=== PATIENT | female | born 1980 | race Caucasian/White ===

== ENCOUNTER → 2018-02-26 14:27 | Outpatient (CLI) | payer OTHER, SELFPAY ==
[2018-02-26 16:03] LABS: Hematocrit 42.6 % (37-47); Hemoglobin 14.7 g/dl (12.0-15.0); Mean Corp Hgb Conc 34.5 g/gl (32-36); Mean Platelet Vol. 10.1 fl (6.2-12.0); Platelet Count 226 K/mm3 (150-450); RBC Distribution Width CV 13.8 % (11.6-14.6); RBC Distribution Width SD 41.6 fl (35.1-43.9); Red Blood Count 5.07 M/mm3 (4.2-5.4); White Blood Count 9.9 K/mm3 (4.4-11.0)
[2018-02-26 16:10] LABS: Scan Indicated on CBC? Y/N NO
[2018-02-26 16:14] LABS: hCG Titer Quant., Serum < 1 mIU/mL (<9 non-preg)
[2018-02-26 16:20] LABS: Estradiol 25.7 pg/mL; Free T3 2.7 pg/mL (2.18-3.98); T4 Free Direct 0.97 ng/dL (0.76-1.46); Thyroid Stim Hormone (TSH) 1.51 uIU/mL (0.358-3.74)
[2018-02-26 17:33] LABS: Hemoglobin A1c 5.5 % (4.2-6.3)
== END ==
LOC: WOBLAB 14:28
PROVIDERS: Visit Provider Obstetrics & Gynecology
DX: N92.5 Other specified irregular menstruation (principal)
CPT/HCPCS: 36415; 82670; 83036; 84144; 84403; 84439; 84443; 84481; 84702; 85027

== ENCOUNTER → 2018-02-27 14:34 | Outpatient (CLI) | payer OTHER, SELFPAY ==
--- NOTE | 2018-02-27 14:36 | US_ITS ---
STUDY: ULTRASOUND TRANSVAGINAL CLINICAL: Female, 37 years old. Irregular vaginal bleeding x3 weeks TECHNIQUE: Transvaginal COMPARISON: None. FINDINGS: Normal uterine size measuring 10.4 x 4.7 x 4.2 cm. there are no myometrial masses. Uterus is diffusely heterogeneous in echogenicity. Normal endometrial thickness measuring 7 mm. The endometrium is hyperechoic. There are no endometrial masses, and there is no fluid in the endometrial cavity. Normal uterine cervix. The right ovary measures 4.6 x 4.0 x 3.5 cm. There is a right ovarian cyst containing debris measuring 3.6 x 3.2 x 2.8 cm. The left ovary measures 3.8 x 2.5 x 2.8 cm. There is a left ovarian cyst measuring 2.2 x 1.6 x 1.7 cm.. There is no free fluid in the pelvis. Polycystic ovary disease: No. US/Pelvic (Non ) IMPRESSION: The uterus is diffusely heterogeneous in echogenicity and measures 10.4 x 4.7 x 4.2 cm. No uterine fibroid was identified. Bilateral ovarian cysts as detailed above. There is no fluid in the cul-de-sac. Electronically Signed: Doc Richardson MD at 22:02 EDT , Service support ,
--- NOTE | 2018-02-27 15:24 | US_ITS ---
STUDY: ULTRASOUND TRANSVAGINAL CLINICAL: Female, 37 years old. Irregular vaginal bleeding x3 weeks TECHNIQUE: Transvaginal COMPARISON: None. FINDINGS: Normal uterine size measuring 10.4 x 4.7 x 4.2 cm. there are no myometrial masses. Uterus is diffusely heterogeneous in echogenicity. Normal endometrial thickness measuring 7 mm. The endometrium is hyperechoic. There are no endometrial masses, and there is no fluid in the endometrial cavity. Normal uterine cervix. The right ovary measures 4.6 x 4.0 x 3.5 cm. There is a right ovarian cyst containing debris measuring 3.6 x 3.2 x 2.8 cm. The left ovary measures 3.8 x 2.5 x 2.8 cm. There is a left ovarian cyst measuring 2.2 x 1.6 x 1.7 cm.. There is no free fluid in the pelvis. Polycystic ovary disease: No. US/Transvaginal Non- IMPRESSION: The uterus is diffusely heterogeneous in echogenicity and measures 10.4 x 4.7 x 4.2 cm. No uterine fibroid was identified. Bilateral ovarian cysts as detailed above. There is no fluid in the cul-de-sac. Electronically Signed: Doc Richardson MD at 22:02 EDT , Service support ,
== END ==
LOC: OPUS 14:34
PROVIDERS: Visit Provider Obstetrics & Gynecology
DX: N93.9 Abnormal uterine and vaginal bleeding, unspecified (principal)
CPT/HCPCS: 76830; 76856; 93976

== ENCOUNTER → 2018-03-20 17:45 | Outpatient (CLI) | payer OTHER, SELFPAY ==
[2018-03-26 14:50] LABS: HPV Reflexed? NOT INDICATED
== END ==
PROVIDERS: Visit Provider Obstetrics & Gynecology
DX: Z12.4 Encounter for screening for malignant neoplasm of cervix (principal)
CPT/HCPCS: 88175; G0145

== ENCOUNTER → 2018-06-28 13:50 | Outpatient (CLI) | payer OTHER, SELFPAY ==
--- NOTE | 2018-06-28 18:19 | US_ITS ---
STUDY: ULTRASOUND OF THE FEMALE PELVIS - COMPLETE REASON FOR EXAM: Female, 37 years old. Cysts and pelvic pain. LMP: 06/24/2018. TECHNIQUE: Transabdominal and Transvaginal TECHNICAL QUALITY: Adequate. COMPARISON: Pelvic ultrasound 02/27/2018. CT scan abdomen and pelvis 05/16/2012. FINDINGS: The uterus is anteverted and is in a midline position. The uterus measures 8.9 x 3.8 x 3.9 cm. There is a Nabothian cyst of the cervix. The endometrium measures 4.2 mm in thickness, and is hyperechoic. There is no demonstrated endometrial mass. There is a submucous leiomyoma in the left side of the uterine fundus measuring 0.9 x 1.5 x 1.3 cm. There is also a partially exophytic, possibly pedunculated leiomyoma arising from the left side of the uterine fundus and measuring 1.7 x 2.5 x 2.2 cm. I.U.D. - The patient does not have an I.U.D. The right ovary is visualized. The right ovary measures 3.3 x 2.4 x 1.8 cm. There is no right ovarian cyst or ovarian mass. There is no visualized right adnexal mass or complex lesion. There is normal arterial and normal venous vascularity. The left ovary is visualized. The left ovary measures 3.3 x 3.3 x 2.9 cm. There is an anechoic left ovarian cyst with slightly irregular margins measuring 2.0 x 2.2 x 1.6 cm. There is also another anechoic left ovarian cyst with irregular margins measuring 1.6 x 1.1 x 1.2 cm. There is normal arterial and normal venous vascularity. There is no fluid in the cul-de-sac. The pre void volume of the bladder was 203 ml. The post void volume of the bladder was not measured.. Polycystic ovary disease: No. US/Transvaginal Non- IMPRESSION: Leiomyomatous uterus. 2.2 cm and 1.6 cm complex left ovarian cyst. Suggest follow-up exam in a few months to assess stability. Electronically Signed: Bashir Figueredo MD at 0:19 EDT , Service support ,
--- NOTE | 2018-06-28 18:19 | US_ITS ---
STUDY: ULTRASOUND OF THE FEMALE PELVIS - COMPLETE REASON FOR EXAM: Female, 37 years old. Cysts and pelvic pain. LMP: 06/24/2018. TECHNIQUE: Transabdominal and Transvaginal TECHNICAL QUALITY: Adequate. COMPARISON: Pelvic ultrasound 02/27/2018. CT scan abdomen and pelvis 05/16/2012. FINDINGS: The uterus is anteverted and is in a midline position. The uterus measures 8.9 x 3.8 x 3.9 cm. There is a Nabothian cyst of the cervix. The endometrium measures 4.2 mm in thickness, and is hyperechoic. There is no demonstrated endometrial mass. There is a submucous leiomyoma in the left side of the uterine fundus measuring 0.9 x 1.5 x 1.3 cm. There is also a partially exophytic, possibly pedunculated leiomyoma arising from the left side of the uterine fundus and measuring 1.7 x 2.5 x 2.2 cm. I.U.D. - The patient does not have an I.U.D. The right ovary is visualized. The right ovary measures 3.3 x 2.4 x 1.8 cm. There is no right ovarian cyst or ovarian mass. There is no visualized right adnexal mass or complex lesion. There is normal arterial and normal venous vascularity. The left ovary is visualized. The left ovary measures 3.3 x 3.3 x 2.9 cm. There is an anechoic left ovarian cyst with slightly irregular margins measuring 2.0 x 2.2 x 1.6 cm. There is also another anechoic left ovarian cyst with irregular margins measuring 1.6 x 1.1 x 1.2 cm. There is normal arterial and normal venous vascularity. There is no fluid in the cul-de-sac. The pre void volume of the bladder was 203 ml. The post void volume of the bladder was not measured.. Polycystic ovary disease: No. US/Pelvic (Non ) IMPRESSION: Leiomyomatous uterus. 2.2 cm and 1.6 cm complex left ovarian cyst. Suggest follow-up exam in a few months to assess stability. Electronically Signed: Bashir Figueredo MD at 0:19 EDT , Service support ,
== END ==
LOC: US 07-05 13:51
PROVIDERS: Visit Provider Obstetrics & Gynecology
DX: N94.6 Dysmenorrhea, unspecified (principal); N92.6 Irregular menstruation, unspecified
CPT/HCPCS: 76830; 76856

== ENCOUNTER → 2018-10-14 13:50 | Outpatient (CLI) | payer OTHER, SELFPAY ==
--- NOTE | 2018-10-14 13:54 | US_ITS ---
STUDY: ULTRASOUND OF THE FEMALE PELVIS REASON FOR EXAM: Female, 38 years old. Dysfunctional uterine bleeding LMP: September 15, 2018 TECHNIQUE: Transverse and longitudinal imaging of the pelvis was obtained transabdominally and transvaginally using real-time ultrasound. COMPARISON: June 28, 2018 FINDINGS: Uterus: Anteverted. 9.6 x 4.2 x 4.8 cm. No demonstrated myometrial mass. Unremarkable cervix. Endometrium: 7-8 mm in thickness. Hyperechoic. No demonstrated endometrial mass. I.U.D. - The patient does not have an I.U.D. Right ovary/adnexa: Visualized. 3.7 x 2.4 x 2.3 cm. Cystic mass measuring 1.8 x 1.4 x 1.5 cm. Normal arterial and normal venous vascularity. No visualized adnexal mass or complex lesion. Left ovary/adnexa: Visualized. 5.1 x 3.3 x 4.2 cm. Cystic mass measuring 3.3 x 0.9 x 3.0 cm. Hypoechoic mass measuring 1.6 x 1.5 x 1.5 cm. Normal arterial and normal venous vascularity. No visualized adnexal mass or complex lesion. Cul-de-sac: There is no fluid in the cul-de-sac. Urinary bladder shows no significant abnormality on limited visualization. US/Pelvic (Non ) IMPRESSION: Small fibroid seen on the most recent pelvic ultrasound were not evident on the current ultrasound. The uterus and endometrium are normal in appearance on the current study. There are cysts and follicles in both ovaries. A probable follicle in the right ovary is simple in appearance. A probable follicle in the left ovary shows minimal debris or hemorrhage. A cystic mass in the left ovary measuring up to 3.3 cm in size and shows no suspicious features. However this cyst may be increased in size compared to the prior study. Continued follow-up is recommended in 4-6 weeks with another ultrasound. Electronically Signed: Kristin Kc MD at 18:02 EST Tel Direct: [phone], Service support ,
--- NOTE | 2018-10-14 14:16 | US_ITS ---
STUDY: ULTRASOUND OF THE FEMALE PELVIS REASON FOR EXAM: Female, 38 years old. Dysfunctional uterine bleeding LMP: September 15, 2018 TECHNIQUE: Transverse and longitudinal imaging of the pelvis was obtained transabdominally and transvaginally using real-time ultrasound. COMPARISON: June 28, 2018 FINDINGS: Uterus: Anteverted. 9.6 x 4.2 x 4.8 cm. No demonstrated myometrial mass. Unremarkable cervix. Endometrium: 7-8 mm in thickness. Hyperechoic. No demonstrated endometrial mass. I.U.D. - The patient does not have an I.U.D. Right ovary/adnexa: Visualized. 3.7 x 2.4 x 2.3 cm. Cystic mass measuring 1.8 x 1.4 x 1.5 cm. Normal arterial and normal venous vascularity. No visualized adnexal mass or complex lesion. Left ovary/adnexa: Visualized. 5.1 x 3.3 x 4.2 cm. Cystic mass measuring 3.3 x 0.9 x 3.0 cm. Hypoechoic mass measuring 1.6 x 1.5 x 1.5 cm. Normal arterial and normal venous vascularity. No visualized adnexal mass or complex lesion. Cul-de-sac: There is no fluid in the cul-de-sac. Urinary bladder shows no significant abnormality on limited visualization. US/Transvaginal Non- IMPRESSION: Small fibroid seen on the most recent pelvic ultrasound were not evident on the current ultrasound. The uterus and endometrium are normal in appearance on the current study. There are cysts and follicles in both ovaries. A probable follicle in the right ovary is simple in appearance. A probable follicle in the left ovary shows minimal debris or hemorrhage. A cystic mass in the left ovary measuring up to 3.3 cm in size and shows no suspicious features. However this cyst may be increased in size compared to the prior study. Continued follow-up is recommended in 4-6 weeks with another ultrasound. Electronically Signed: Kristin Kc MD at 18:02 EST Tel Direct: [phone], Service support ,
[2018-10-14 16:25] LABS: Estradiol 78.6 pg/mL
[2018-10-14 16:29] LABS: Progesterone Level 2.01 ng/mL (See Comment)
== END ==
PROVIDERS: Referring Provider Obstetrics & Gynecology; Visit Provider Obstetrics & Gynecology
DX: N92.6 Irregular menstruation, unspecified (principal)
CPT/HCPCS: 36415; 76830; 76856; 82670; 84144; 93976

== ENCOUNTER 2018-11-12 10:50 | Day surgery (SDC) | payer OTHER, SELFPAY ==
--- NOTE | 2018-11-08 14:47 | EKG12_ITS ---
Test Reason : PRE-OP Blood Pressure : / mmHG Vent. Rate : 075 BPM Atrial Rate : 075 BPM P-R Int : 154 ms QRS Dur : 082 ms QT Int : 390 ms P-R-T Axes : 048 051 045 degrees QTc Int : 435 ms Normal sinus rhythm Normal ECG Confirmed by ANDREINA AUGUSTE, PADMINI ([id number]), development editor TOYA PELAYO ([id number]) on 11/12/2018 8:32:12 AM Referred By: Tika Alonzo Confirmed By:PADMINI HDZ MD
[2018-11-08 15:48] LABS: Hematocrit 43.4 % (37-47); Hemoglobin 14.5 g/dl (12.0-15.0); Mean Corp Hgb Conc 33.4 g/gl (32-36); Mean Corpuscular Hgb 27.6 pg (27.0-32.0); Mean Corpuscular Volume 82.7 fL (81-99); Mean Platelet Vol. 9.5 fl (6.2-12.0); Platelet Count 256 K/mm3 (150-450); RBC Distribution Width CV 13.7 % (11.6-14.6); RBC Distribution Width SD 41.1 fl (35.1-43.9); Red Blood Count 5.25 M/mm3 (4.2-5.4); White Blood Count 10.7 K/mm3 (4.4-11.0)
[2018-11-08 15:50] LABS: Scan Indicated on CBC? Y/N NO
--- NOTE | 2018-11-11 14:27 | PCM.HP.OB ---
History Date of Admission: 11/12/18 History of this : This is a 38 year-old, G [], P [], at weeks gestational age. Allergies doxycycline Allergy (Verified 11/05/18 12:53) Hives Sulfa (Sulfonamide Antibiotics) Allergy (Verified 05/17/14 11:06) Hives prednisone Adverse Reaction (Verified 06/18/14 06:23) Pain in joints Home Medications: Home Medications Albuterol Inhaler [Ventolin Hfa] 1 puff INHALATION Q4H PRN PRN 06/18/14 Cmp Progesteron Cream 70 Mg 11/05/18 Fluticasone/Vilanterol [Breo Ellipta 200-25 Mcg INH] 1 each IH DAILY 11/05/18 Hydrochlorothiazide [Hctz] 25 mg PO DAILY 11/05/18 Metoprolol Succinate [Toprol Xl] 50 mg PO DAILY 11/05/18 Omeprazole [Prilosec] 20 mg PO BID 11/05/18 Sertraline HCl [Zoloft] 100 mg PO DAILY 11/05/18 Zolpidem Tartrate [Ambien] 10 mg PO DAILY 11/05/18 Smoking Status: Current every day smoker History Past Pregnancies: Past Pregnancies Delivery Date Name GA/Weeks Outcome Route Weight Infant Gender Labor Length Anesthesia Delivery Location Provider FOB Review of Systems Constitutional: Denies: Chills, Fever, Weight Change HEENT: Denies: Difficulty Hearing, Difficulty Swallowing, Nasal bleeding, Nasal Congestion, Sore Throat Cardiovascular: Denies: Chest Pain, Palpitations Respiratory: Denies: Shortness of Breath, Wheezing Gastrointestinal: Denies: Constipation, Diarrhea, Nausea, Vomiting Genitourinary: Denies: Dysuria, Frequency, Hematuria, Incontinence, Urgency Musculoskeletal: Denies: Joint Pain, Muscle pain Skin: Denies: Lesions, Skin Changes Neurological: Denies: Focal weakness, Numbness Psychiatric: Denies: Anxiety, Depression Endocrine: Denies: Heat/ Cold Intolerance Hematologic/ Lymphatic: Denies: Easy Bleeding Physical Exam General: Alert, Oriented x3, No apparent distress HEENT: Atraumatic, Normocephalic. Negative for: Thyromegaly, Lymphadenopathy Cardiovascular: Regular rate, Regular Rhythm Lungs: Clear to auscultation Abdomen: Bowel Sounds Present, Soft, Non Tender Extremities:: No edema Neurological: Cranial nerves II-XII grossly intact SPLITTING MACHINE TENDER: Normal external genitalia Assessment/Plan This is a 38 year-old, prior LTCS with increasing menorrhagia labile to medical therapy. Robotic assisted hysterectomy, bilateral salpingectomy and possible oophorectomy bowel prep the preop preparation, the intraop procedures and the postop recovery reviewed. The risks of bleeding, infection and other organ damage including bladder, bowel and ureteral injury reviewed, accepted and consented. 2. Tobacco use denies need for patch during hospital stay home aerosols reviewed
[2018-11-12] VITALS (10 sets, daily range): BP systolic 101–117; BP diastolic 55–72; PULSE 64–80; RESP 16–18; TEMP 36.1–37.1; O2SAT 93–99; BMI 41.8
[2018-11-12 11:12] LABS: Internal QC Validated? YES +Cl - CLEAR BKGD; Pregnancy, Urine Negative Negative
[2018-11-12 12:03] LABS: Prothrombin Time (Protime)PT. 13.2 SECONDS (11.7-14.9)
[2018-11-12 12:04] LABS: Partial Thromboplast Time 26.1 Seconds (24.1-36.2)
--- NOTE | 2018-11-12 13:00 | HYST_PTH ---
PATIENT: JAMIL GALO LOC: [facility] [place] U#:[id number] AGE/SX: 38/F ROOM: RE11/12/[address]: Dr. Tika Alonzo MD : [id number] BED: DIS: 11/13/2018 SPEC #: [id number] RECD: 11/12/18 16:44 STATUS: HUMBERTO SHELLEY #: [id number] BEATA: 11/12/18 13:[address]: Tika Alonzo DEPT: SURGICAL PATHOLOGY RECD BY: Arnol Ceballos ENTERED: 11/13/18 07:23 SP TYPE: HYSTERECT OT DR: Out of Town Doctor Tissues: Uterus, NOS Procedures: Surgery Specimen Level V HEADER OPERATION: Robotic assisted vaginal hysterectomy left salpingo-oophorectomy PRE-OP DIAGNOSIS: Menorrhagia, remote endometriosis TISSUE SUBMITTED: Uterus, cervix, bilateral fallopian tubes, left ovary MICROSCOPIC DIAGNOSIS Uterus, hysterectomy: Cervix - squamous metaplasia and minimal chronic inflammation. Endometrium - proliferative endometrium with focal glandular breakdown. Myometrium - focal superficial adenomyosis. Right fallopian tube - no pathologic change. Left fallopian tube - tubo-ovarian adhesions. Left ovary - endometriosis, follicular and corpus leuteal cysts and corpora albicantia. AM:tommy 11/14/18 COMMENT Case has been reviewed in consultation with Dr. Song who concurs with the above diagnosis. IDC:[email or web address] MICROSCOPIC DESCRIPTION Slides are reviewed. GROSS DESCRIPTION Received in fixative is one container labeled with the patient's name and designated uterus, cervix, bilateral fallopian tubes and left ovary. The specimen consists of a hysterectomy specimen consisting of uterus with cervix, attached right fallopian tube and detached left fallopian tube and ovary. The uterus with cervix weighs 79 gm and measures 10 x 6.5 x 4 cm. The serosal surface is alcala, glistening. The external os is circular in contour. The ectocervical mucosa is alcala, glistening and unremarkable. The endocervical canal measures 4.5 cm in length and the endocervical mucosa is alcala, glistening and unremarkable. The triangular endometrial cavity measures 4 cm in length and up to 2 cm in width. The endometrium is alcala, glistening without any mass lesion and measures <0.1 cm in thickness. Sections of the myometrial wall do not reveal any mass lesion and measures up to 2 cm in thickness. The right fallopian tube measures 6 cm in length and 0.8 cm in diameter. The fimbrial end is identified. A paratubal cyst is noted measuring 0.7 cm in greatest dimension. The fallopian tube appears to be interrupted in the middle. Sections do not reveal any mass lesion. The left fallopian tube and ovary appears to reveal a tubo-ovarian mass. The adherent fallopian tube measures 4 cm in length and 1 cm in diameter. The fimbrial end is identified. The ovary measures 3.5 x 3 x 3 cm. Sections of the ovary reveal multiple hemorrhagic cysts filled with clotted and liquified blood. The largest cyst measures 2 cm in greatest dimension. Steam Tunnel Feeder sections are submitted in 12 cassettes as follows: 1 - anterior cervix, 2 - posterior cervix, 3 & 4 - anterior uterine wall, 5 & 6 - posterior uterine wall, 7 - right fallopian tube, 812?-?left fallopian tube and ovary. / KOLTON:tommy 11/13/18 TC:5 CPT: 68840
--- NOTE | 2018-11-12 15:33 | PCM.OPRPT ---
Report of Operation Date of Procedure: 11/12/18 Pre-Operative Diagnosis: Menorrhagia and history of endometriosis Post-Operative Diagnosis: Same plus pelvic adhesive disease Surgery/Procedure Performed:: Robotic assisted hysterectomy left salpingo-oophorectomy right salpingectomy extensive enterolysis and bladder instillation with methylene blue Description of Surgical Findings:: Uterus was noted to be approximately 10 cm in anteflexed position. Atrial and stuck to the pelvic sidewall brass polisher: Latasha Godoy Type of Anesthesia:: General Anesthesiologist: Obie Remy Special Medications: Cefotetan 3 g IV. Paxton Specimen's removed: , Left fallopian tube, left ovary, right fallopian cervix uterus Drains: None Estimated Blood Loss (mL): 200 cc Fluids Replaced: lactated ringers Description of Procedure: Was brought to the operating room and n.p.o. status and had undergone a bowel preparation. Patient was placed on the patient sandbag monitors placed.Once general anesthesia adequate, patient placed in the dorsal lithotomy position. the patient had tilt test. The patient had time out x 2 prior to surgery. Patient was prepped and draped in the normal sterile fashion. The patient had weighted speculum placed to the vaginal vault region at which time the anterior lip of the cervix was grasped and elevated with a tenaculum. Sounded to approximately 10-1/2 cm in anteflexed the patient had a large tenaculum placed to the cervix and secured at the 3 and 9 o'clock position with 0 Vicryl suture. Changing gloves and moving to the top of the patient, the uterine measurement is noted and the number was 12 cm above the fundal region. The ability for Veress needle insufflation was limited secondary to the this. Therefore entry into the abdominal cavity occurred at Che's point a Visiport and 5 mm laparoscope was used for entry. The notation of the uterus as well as pelvic adhesive disease was noted. The camera port was then placed under direct visualization that being a robotic 8 mm nondisposable trocar. The left and right robotic arms were also placed under direct visualization region those each being 8 mm nondisposable ports. The 5 mm entry site became the data control assistant port and an additional data control assistant port in the right upper quadrant and an 8 mm seal was placed under direct visualization. Extreme Trendelenburg then occurred and the robot was docked to the patient's side. The robotic arms were connected to the trochars including the camera, the left robotic arm, and the right robotic arm. The left robotic arm became the vessel sealer in the right robotic arm became monopolar ector. At this point in time ID jessica moved to the console of the robot to take over control of the case. Normal anatomy was restored with extensive enteral lysis including omental adhesions and bowel adhesions at this point in time then the round ligament was grasped cauterized and transected the broad ligament into anterior and posterior leaves ovary and fallopian tube which was encased in an endometrioma. The ureter was noted coming over the pelvic brim and a notation in the avoidance of that left ureter sequential dissection of the left fallopian tube and ovary occurred. During of the infundibulopelvic ligament on the patient's left left side occurred. Continued dissection and transection of that left ovary and fallopian tube occurred. Uterine vasculature was then cauterized. Attempts at the vesicouterine turning to the patient's right side the round ligament was grasped cauterized and transected. the broad ligament to the anterior and posterior leaves. The left and right fallopian tube was cauterized and transected cauterized and transected. Further dissection of the peritoneum and attempts at the vesicouterine peritoneum occurred. Uterine vasculature was secured cauterized and transected. At this point in time the bladder was instilled with a diluted methylene agent to examine the location of the bladder with continued vesicouterine peritoneal dissection occurring. The uterosacral ligaments and the cardinal ligaments were cauterized and transected and a colpotomy incision was made in the posterior cervix at the 6:00 region and carried in a clockwise fashion up to 12:00 of this colpotomy incision at the same time dissecting the vesicouterine peritoneal region connect the original colpotomy site at 6:00 completes separation of the cervix away from the vaginal cuff had occurred. My data control assistant at this point in time remove the cervix and uterus right fallopian tube left ligament through the vagina. The vaginal tampon was placed. Irrigation of the pelvis occurred. Notation of the ureters well away from the area was noted bilaterally. The robotic arms were changed by my data control assistant with the left arm becoming a large grasper in the right arm becoming to make a suture cut. The data control assistant sequentially placed over Vicryl sutures through the right upper quadrant millimeter trocar and I first placed an angle stitch connecting the vaginal cuff to the uterosacral cardinal complement on the patient's left side that needle was removed. I repeated the exact same stitch on the patient's right side of the vaginal cuff securing it to the uterosacral cardinal complex and that needle was removed. 2 additional 0 Vicryl sutures were in sequence placed to me to further close that vaginal clot in [id number] stitches. All needles were accounted for and out of the pelvis. Irrigation of the pelvis occurred. Paxton was then placed throughout the pelvis. All instruments were then removed from the abdominal cavity. The sponge instrument and needle counts were correct x2 at this point in the case. Ureters were once again been evaluated and noted to be peristalsing bilaterally and away from the operative sites bilaterally. At this point in time the robot was de-docked from the patient's side all trochars were removed from the abdominal cavity CO2 gas was removed from the abdominal cavity into the incisions were closed with 4-0 Monocryl in subcuticular fashion. Once again the sponge instrument and needle counts were correct. The patient was awakened in stable condition to be admitted overnight for care Grafts/Implants Used: None - Complications None - Admit VTE Documentation VTE Present on Admission: No VTE Mechan Device Prophylaxis: SCD's VTE Pharm Prophylaxis ordered?: No Reason prophylaxis not ordered:: Procedure Not Indicated
--- NOTE | 2018-11-12 15:37 | OP.PCM_ITS ---
Report of Operation Date of Procedure: 11/12/18 Pre-Operative Diagnosis: Menorrhagia and history of endometriosis Post-Operative Diagnosis: Same plus pelvic adhesive disease Surgery/Procedure Performed:: Robotic assisted hysterectomy left salpingo- oophorectomy right salpingectomy extensive enterolysis and bladder instillation with methylene blue Description of Surgical Findings:: Uterus was noted to be approximately 10 cm in anteflexed position. Atrial and stuck to the pelvic sidewall scow hand: Latasha Godoy Type of Anesthesia:: General Anesthesiologist: Obie Remy Special Medications: Cefotetan 3 g IV. Paxton Specimen's removed: , Left fallopian tube, left ovary, right fallopian cervix uterus Drains: None Estimated Blood Loss (mL): 200 cc Fluids Replaced: lactated ringers Description of Procedure: Was brought to the operating room and n.p.o. status and had undergone a bowel preparation. Patient was placed on the patient sandbag monitors placed.Once general anesthesia adequate, patient placed in the dorsal lithotomy position. the patient had tilt test. The patient had time out x 2 prior to surgery. Patient was prepped and draped in the normal sterile fashion. The patient had weighted speculum placed to the vaginal vault region at which time the anterior lip of the cervix was grasped and elevated with a tenaculum. Sounded to approximately 10-1/2 cm in anteflexed the patient had a large tenaculum placed to the cervix and secured at the 3 and 9 o'clock position with 0 Vicryl suture. Changing gloves and moving to the top of the patient, the uterine measurement is noted and the number was 12 cm above the fundal region. The ability for Veress needle insufflation was limited secondary to the this. Therefore entry into the abdominal cavity occurred at Che's point a Visiport and 5 mm laparoscope was used for entry. The notation of the uterus as well as pelvic adhesive disease was noted. The camera port was then placed under direct visualization that being a robotic 8 mm nondisposable trocar. The left and right robotic arms were also placed under direct visualization region those each being 8 mm nondisposable ports. The 5 mm entry site became the assistant merchandiser port and an additional assistant merchandiser port in the right upper quadrant and an 8 mm seal was placed under direct visualization. Extreme Trendelenburg then occurred and the robot was docked to the patient's side. The robotic arms were connected to the trochars including the camera, the left robotic arm, and the right robotic arm. The left robotic arm became the vessel sealer in the right robotic arm became monopolar ector. At this point in time ID jessica moved to the console of the robot to take over control of the case. Normal anatomy was restored with extensive enteral lysis including omental adhesions and bowel adhesions at this point in time then the round ligament was grasped cauterized and transected the broad ligament into anterior and posterior leaves ovary and fallopian tube which was encased in an endometrioma. The ureter was noted coming over the pelvic brim and a notation in the avoidance of that left ureter sequential dissection of the left fallopian tube and ovary occurred. During of the infundibulopelvic ligament on the patient's left left side occurred. Continued dissection and transection of that left ovary and fallopian tube occurred. Uterine vasculature was then cauterized. Attempts at the vesicouterine turning to the patient's right side the round ligament was grasped cauterized and transected. the broad ligament to the anterior and posterior leaves. The left and right fallopian tube was cauterized and transected cauterized and transected. Further dissection of the peritoneum and attempts at the vesicouterine peritoneum occurred. Uterine vasculature was secured cauterized and transected. At this point in time the bladder was instilled with a diluted methylene agent to examine the location of the bladder with continued vesicouterine peritoneal dissection occurring. The uterosacral ligaments and the cardinal ligaments were cauterized and transected and a colpotomy incision was made in the posterior cervix at the 6:00 region and carried in a clockwise fashion up to 12:00 of this colpotomy incision at the same time dissecting the vesicouterine peritoneal region connect the original colpotomy site at 6:00 completes separation of the cervix away from the vaginal cuff had occurred. My assistant merchandiser at this point in time remove the cervix and uterus right fallopian tube left ligament through the vagina. The vaginal tampon was placed. Irrigation of the pelvis occurred. Notation of the ureters well away from the area was noted bilaterally. The robotic arms were changed by my assistant merchandiser with the left arm becoming a large grasper in the right arm becoming to make a suture cut. The assistant merchandiser sequentially placed over Vicryl sutures through the right upper quadrant millimeter trocar and I first placed an angle stitch connecting the vaginal cuff to the uterosacral cardinal complement on the patient's left side that needle was removed. I repeated the exact same stitch on the patient's right side of the vaginal cuff securing it to the uterosacral cardinal complex and that needle was removed. 2 additional 0 Vicryl sutures were in sequence placed to me to further close that vaginal clot in [id number] stitches. All needles were accounted for and out of the pelvis. Irrigation of the pelvis occurred. Paxton was then placed throughout the pelvis. All instruments were then removed from the abdominal cavity. The sponge instrument and needle counts were correct x2 at this point in the case. Ureters were once again been evaluated and noted to be peristalsing bilaterally and away from the operative sites bilaterally. At this point in time the robot was de-docked from the patient's side all trochars were removed from the abdominal cavity CO2 gas was removed from the abdominal cavity into the incisions were closed with 4-0 Monocryl in subcuticular fashion. Once again the sponge instrument and needle counts were correct. The patient was awakened in stable condition to be admitted overnight for care Grafts/Implants Used: None - Complications None - Admit VTE Documentation VTE Present on Admission: No VTE Mechan Device Prophylaxis: SCD's VTE Pharm Prophylaxis ordered?: No Reason prophylaxis not ordered:: Procedure Not Indicated
[2018-11-12] MEDS: Lactated Ringers 500 ML 999 ML IV (16:15)
[2018-11-12] MEDS: Ipratropium/Albuterol Sulfate 3 ML AMPUL.NEB INHALATION (16:15)
[2018-11-12] MEDS: Ketorolac 30 MG/ML Syringe IV (16:25)
[2018-11-12] MEDS: Lactated Ringers 1,000 ML 125 ML IV ×2 (16:49→21:38)
--- NOTE | 2018-11-12 17:41 | CPS ---
STAT BREATHING TX GIVEN IN PACU
[2018-11-12] MEDS: 0.9% NaCl Peripheral Flush Adult/Peds IV (19:17)
[2018-11-12] MEDS: Morphine 2 MG/ML Syringe IV (19:17)
[2018-11-12] MEDS: Albuterol 2.5 MG/3 ML VIAL.NEB. INHALATION (19:36)
[2018-11-12] MEDS: Budesonide Respules 0.5 MG/2 ML AMPUL.NEB. INHALATION (19:36)
[2018-11-12] MEDS: Phenazopyridine 95 MG Tablet 190 MG PO (21:38)
[2018-11-12] MEDS: Metoclopramide 10 MG/2 ML Vial IV (21:38)
[2018-11-12] MEDS: oxyCODONE 5 MG Tablet PO (21:55)
[2018-11-13] VITALS (8 sets, daily range): BP systolic 91–103; BP diastolic 48–63; PULSE 74–96; RESP 12–20; TEMP 36.6–36.9; O2SAT 93–97
[2018-11-13] MEDS: Albuterol 2.5 MG/3 ML VIAL.NEB. INHALATION ×2 (01:25→06:52)
[2018-11-13] MEDS: oxyCODONE 5 MG Tablet PO ×3 (01:59→13:21)
--- NOTE | 2018-11-13 02:31 | NURSING ---
Scope patch removed per pt request and thrown in sharps container.
[2018-11-13] MEDS: Ketorolac 30 MG/ML Syringe IV ×2 (04:00→10:39)
[2018-11-13 05:55] LABS: Hematocrit 36.3 % (37-47); Hemoglobin 11.3 g/dl (12.0-15.0); Mean Corp Hgb Conc 31.1 g/gl (32-36); Mean Corpuscular Hgb 26.8 pg (27.0-32.0); Mean Platelet Vol. 8.8 fl (6.2-12.0); Platelet Count 157 K/mm3 (150-450); RBC Distribution Width CV 13.8 % (11.6-14.6); RBC Distribution Width SD 42.3 fl (35.1-43.9); Red Blood Count 4.22 M/mm3 (4.2-5.4); Scan Indicated on CBC? Y/N YES- FLAGS NOTED; White Blood Count 9.9 K/mm3 (4.4-11.0)
[2018-11-13] MEDS: Metoclopramide 10 MG/2 ML Vial IV (06:45)
[2018-11-13] MEDS: Phenazopyridine 95 MG Tablet 190 MG PO ×2 (06:45→13:22)
[2018-11-13] MEDS: Acetaminophen 500 MG Tablet 1000 MG PO (06:45)
[2018-11-13] MEDS: 0.9% NaCl Peripheral Flush Adult/Peds IV ×3 (06:46→10:41)
[2018-11-13] MEDS: Budesonide Respules 0.5 MG/2 ML AMPUL.NEB. INHALATION (06:52)
--- NOTE | 2018-11-13 08:22 | PCM.DC.VHY ---
Discharge Diet: - - No beef, pork or fresh vegetables x 2 weeks after surgery. Water intake a minimum of 120 ounces per day. Protein smoothies and shakes encouraged between meals at least 2x daily. Discharge Activity: Return to Normal Activity - Ambulate often with periods of rest in between, May Not Drive - while taking narcotic pain medications., May Shower May shower in (days): 0 - TODAY May resume sexual activity in: 8 weeks Weight Bearing Status: Full weight bearing Lifting Restrictions: 5 pounds Call your doctor if your incision/area has: Sudden Increased Bleeding, Increased Redness Call your doctor if you observe: Fever of 101 or Higher, Inability to urinate, Inability to have a bowel movement, Using more than one pad per hour, Shortness of breath Remove Dressing in (days):: 0 - remove all bandages today with soap and water Cleanse incision/area with: Soap & Water Allergies/Adverse Reactions: Allergies doxycycline Allergy (Verified 11/05/18 12:53) Hives Sulfa (Sulfonamide Antibiotics) Allergy (Verified 05/17/14 11:06) Hives prednisone Adverse Reaction (Verified 06/18/14 06:23) Pain in joints Medications to take at Discharge Albuterol Inhaler [Ventolin Hfa] 1 puff INHALATION Q4H PRN PRN 06/18/14 Cmp Progesteron Cream 70 Mg 11/05/18 Fluticasone/Vilanterol [Breo Ellipta 200-25 Mcg INH] 1 each IH DAILY 11/05/18 Hydrochlorothiazide [Hctz] 25 mg PO DAILY 11/05/18 Metoprolol Succinate [Toprol Xl] 50 mg PO DAILY 11/05/18 Omeprazole [Prilosec] 20 mg PO BID 11/05/18 Sertraline HCl [Zoloft] 100 mg PO DAILY 11/05/18 Zolpidem Tartrate [Ambien] 10 mg PO DAILY 11/05/18 Orders to be completed after discharge: 12 Lead EKG [CVS] Time Frame: 11/05/18, Facility: [facility], Location: Cardiovascular Services Primary Care Physician: Alexandra De Souza,Out of [Primary Care Provider] - Test Results: Test results from this visit will be discussed in further detail at your follow-up appointment, if applicable. Please Follow Up With: Tika Alonzo MD When: 1-2 weeks postop. Call for appointment if not already arranged
[2018-11-13] MEDS: Glycerin 1 Suppository 1 SUPP RECTAL (08:34)
--- NOTE | 2018-11-13 11:59 | CASEMGMT ---
OMAIRA STREETER NOTE: OMAIRA Rincon informed this RN FERDINAND that pt told her that her dog chewed on her CPAP mask, tubing, and cord. OMAIRA STREETER to room to talk with pt. Pt states she has not used her CPAP machine for about 2 years d/t this and that she would like to start using it again. Pt states she got her CPAP machine @ [facility] and that she called [facility] in the past and that she was informed that she would need another sleep study completed to get replacement of these supplies. OMAIRA STREETER called [facility] and spoke to [facility]. She states pt will not need another sleep study done. States she just needs a new script for the mask and tubing and that she can stop in at their store and flower picker a new cord. Script obtained from Dr Alonzo and faxed to [facility]. Pt and given the original script for the mask and tubing and they were made aware they can pick all of the replacement items for the CPAP @ [facility] store. [facility]'s address and phone number provided to them. Jamie CARDOZA RN RM
--- NOTE | 2018-11-13 12:45 | PCM.PN.OB ---
Subjective: Feels well. + burping and small flatus. Ambulating well. Tolerating po intake. - Physical Exam General: No apparent distress, Well developed, Well nourished HEENT: PERRLA, EOMI, Normocephalic Oral: Moist Mucosa Neck: Supple Lungs: Clear to auscultation, Normal air movement Cardiovascular: Regular rate, Regular Rhythm Abdomen: Bowel Sounds Present, Soft, Non Tender, Non-Distended, - - incisions x 5 bandaged Extremities: No edema Skin: No rashes Musculoskeletal: No Tenderness to Palpation of Joints or Extremities Vital Signs Temp Pulse Resp BP Pulse Ox 98.5 F 80 12 94/48 L 95 11/13/18 07:30 11/13/18 07:30 11/13/18 07:30 11/13/18 07:30 11/13/18 12:07 Oxygen Flow Rate (L/min) 2 Oxygen Delivery Method Nasal Cannula Weight: 229 lb 0.964 oz Body Mass Index (BMI) 41.8 Intake and Output for Last 24 Hours 11/11/18 11/12/18 11/13/18 23:59 23:59 23:59 Intake Total 2578 / 2578 2570 / 2570 Output Total 275 / 275 950 / 950 Balance 2303 / 2303 1620 / 1620 Laboratory Tests Past 24 Hrs 11/12/18 11/13/18 11:45 05:38 WBC 9.9 RBC 4.22 Hgb 11.3 L Hct 36.3 L MCV 86.0 MCH 26.8 L MCHC 31.1 L RDW 13.8 RDW Differential 42.3 Plt Count 157 MPV 8.8 Differential Comment Blood Type B POSITIVE Antibody Screen NEGATIVE Medical Necessity - Tobacco Use Smoking Status: Current every day smoker Assessment/Plan This is a 38 year-old, prior LTCS with increasing menorrhagia labile to medical therapy. Robotic assisted hysterectomy, bilateral salpingectomy and possible oophorectomy bowel prep the preop preparation, the intraop procedures and the postop recovery reviewed. The risks of bleeding, infection and other organ damage including bladder, bowel and ureteral injury reviewed, accepted and consented. 2. Tobacco use denies need for patch during hospital stay home aerosols reviewed resume home meds and CPAP supplies are ordered 3. POD #1 - robotic assisted hysterectomy, LSO, right salpingectomy, extensive enterolysis ambulating well tolerating po intake small flatus s/p bowel prep discharge to home Ambien not to be used prescriptions for Percocet, motrin and colace home diet, water intake and ambulation reviewed
--- NOTE | 2018-11-13 14:01 | CASEMGMT ---
Pt requested to complete POA form. SW assisted pt in completing POA form, pt declined to complete LW form at this time. SW gave pt the original and a copy, and a copy was placed on the chart. JOAN Lawson, REGIONAL SALES DIRECTOR
--- NOTE | 2018-11-13 14:25 | NURSING ---
student nurses documentation reviewed for documentation learning purposes
== END 2018-11-13 15:04 | disposition home or self-care (01) ==
LOC: SDC 10:51 → AC 10:52 → MS3 13:43
PROVIDERS: Referring Provider Obstetrics & Gynecology; Visit Provider Obstetrics & Gynecology
PROC: 0UT94ZZ Resection of Uterus, Percutaneous Endoscopic Approach (ICD-10-PCS; CPT 51700; principal; 2018-11-12 12:40)
DX: N92.0 Excessive and frequent menstruation with regular cycle (principal); N83.12 Corpus luteum cyst of left ovary; N73.6 Female pelvic peritoneal adhesions (postinfective); N80.1 Endometriosis of ovary; N80.0 Endometriosis of uterus; I10 Essential (primary) hypertension; F17.200 Nicotine dependence, unspecified, uncomplicated
CPT/HCPCS: 00840; 51700; 58552; S2900; 36415; 81025; 85027; 85610; 85730; 86850; 86900; 88307; 93005; 94640; J7120; A4216; J2405

== ENCOUNTER → 2019-07-15 10:34 | Outpatient (CLI) | payer OTHER, SELFPAY ==
[2018-11-12 17:16] VITALS: BMI 41.8
[2019-07-15 12:27] LABS: Erythrocyte Sedimentation Rate 20 mm/hr (0-20)
[2019-07-15 12:30] LABS: Absolute Lymphocyte Count 1.85 X10^3/uL (0.83-4.51); Absolute Neutrophil Count 6.6 X10^3/uL (2.0-7.7); Basophil# 0.03 X10^3/uL; Basophil% 0.3 % (0-1); Eosinophil# 0.15 X10^3/uL; Eosinophils% 1.6 % (0-5); Hematocrit 41.3 % (37-47); Hemoglobin 13.5 g/dL (12.0-15.0); Lymphocyte # 1.85 X10^3/ul (4.0); Lymphocyte % 20.2 % (19-41); Mean Corp Hgb Conc 32.7 g/dL (32-36); Mean Corpuscular Hgb 27.1 pg (27.0-32.0); Mean Corpuscular Volume 82.8 fL (81-99); Mean Platelet Vol. 9.2 fl (6.2-12.0); Monocyte# 0.45 X10^3/uL; Monocyte% 4.9 % (0-10); NRBC Flagged by Analyzer 0 % (0-5); Neutrophil # 6.61 X10^3/uL (2.7-7.7); Neutrophil % 72.5 % (47-70); Platelet Count 189 K/mm3 (150-450); RBC Distribution Width CV 14.3 % (11.6-14.6); RBC Distribution Width SD 42.7 fl (35.1-43.9); Red Blood Count 4.99 M/mm3 (4.2-5.4); White Blood Count 9.1 K/mm3 (4.4-11.0)
[2019-07-15 12:46] LABS: Rheumatoid Factor < 10.0 IU/mL (<15)
[2019-07-16 16:07] LABS: SJOGREN'S Anti-SS-A test < 0.2 AI (0.0-0.9); SJOGREN'S Anti-SS-B test < 0.2 AI (0.0-0.9)
[2019-07-17 14:33] LABS: Anti-Nuclear Antibody Test Negative (.)
[2019-07-17 16:08] LABS: Cytoplasmic Ab (C-ANCA) <1:20 titer (Neg:<1:20)
[2019-07-17 20:49] LABS: Angiotensin Convert Enzyme 94 U/L (14-82); Perinuclear Ab (P-ANCA) <1:20 titer (Neg:<1:20)
== END ==
LOC: MTLAB 10:37
PROVIDERS: Referring Provider Otolaryngology; Visit Provider Otolaryngology
DX: K11.7 Disturbances of salivary secretion (principal)
CPT/HCPCS: 36415; 82164; 85025; 85652; 86038; 86235; 86256; 86431

== ENCOUNTER → 2019-08-05 12:14 | Outpatient (CLI) | payer OTHER, SELFPAY ==
[2018-11-12 17:16] VITALS: BMI 41.8
--- NOTE | 2019-08-05 12:16 | CT_ITS ---
STUDY: CT MAXILLOFACIAL SINUSES REASON FOR EXAM: Female, 38 years old. Chronic sinusitis. RADIATION DOSAGE (If Supplied By Facility): CTDIvol = ( 33.06 ) mGy, DLP = ( 800.79 ) mGycm TECHNIQUE: The patient was scanned in a multi detector CT scanner. High resolution axial imaging was performed without the administration of intravenous contrast material. Sagittal and coronal images were reconstructed. Individualized dose optimization techniques were used for this CT. COMPARISON: None. FINDINGS: FRONTAL SINUSES: Normal aeration, without mucosal inflammatory disease. ETHMOIDAL SINUSES: Normal aeration, without mucosal inflammatory disease. MAXILLARY SINUSES: Normal aeration, without mucosal inflammatory disease. SPHENOIDAL SINUSES: Normal aeration, without mucosal inflammatory disease. There is patency of the bilateral maxillary infundibuli with normal uncinate processes, ethmoid bullae, and hiatus semilunaris. Normal bilateral middle turbinates. Normal bilateral inferior turbinates. There is a right sided nasal septal deviation with a right sided nasal septal spur. There is patency of the bilateral nasal airways. The visualized osseous structures are normal. The visualized bilateral orbital contents are normal. CT/Sinus/Facial Bone IMPRESSION: No CT evidence of acute or chronic sinusitis. Patent ostiomeatal units bilaterally. Slight deviation of nasal septum to the right with a bony spur projecting between the right middle and inferior turbinates. Electronically Signed: Mj Malagon MD at 13:15 EDT Tel , Service support ,
== END ==
LOC: CT 12:15
PROVIDERS: Family Provider Family Medicine; PCP Family Medicine; Referring Provider Otolaryngology; Visit Provider Otolaryngology
DX: J32.2 Chronic ethmoidal sinusitis (principal)
CPT/HCPCS: 70486

== ENCOUNTER 2020-08-31 13:27 | Observation (INO) | payer OTHER, SELFPAY ==
[2018-11-12 17:16] VITALS: BMI 41.8
[2020-08-31 13:28] VITALS: BP 152/78; PULSE 86; RESP 9; TEMP 36.9; O2SAT 100; BMI 45.6
--- NOTE | 2020-08-31 14:09 | EKG12_ITS ---
Test Reason : DIZZINESS Blood Pressure : / mmHG Vent. Rate : 069 BPM Atrial Rate : 069 BPM P-R Int : 166 ms QRS Dur : 094 ms QT Int : 402 ms P-R-T Axes : 046 033 036 degrees QTc Int : 430 ms Normal sinus rhythm Normal ECG Confirmed by ANDREINA AUGUSTE, PADMINI ([id number]), online editor ANGE LOPEZ ([id number]) on 09/03/2020 10:58:09 AM Referred By: STEPHON Confirmed By:PADMINI HDZ MD
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
[2020-08-31 14:34] LABS: Absolute Lymphocyte Count 1.78 X10^3/uL (0.83-4.51); Absolute Neutrophil Count 7.8 X10^3/uL (2.0-7.7); Basophil# 0.03 X10^3/uL; Basophil% 0.3 % (0-1); Eosinophil# 0.13 X10^3/uL; Eosinophils% 1.3 % (0-5); Hematocrit 43.7 % (37-47); Hemoglobin 13.4 g/dL (12.0-15.0); Lymphocyte # 1.78 X10^3/ul (4.0); Lymphocyte % 17.3 % (19-41); Mean Corp Hgb Conc 30.7 g/dL (32-36); Mean Corpuscular Hgb 23.8 pg (27.0-32.0); Mean Corpuscular Volume 77.5 fL (81-99); Mean Platelet Vol. 9.3 fl (6.2-12.0); Monocyte# 0.52 X10^3/uL; NRBC Flagged by Analyzer 0 % (0-5); Neutrophil % 75.7 % (47-70); Platelet Count 186 K/mm3 (150-450); RBC Distribution Width CV 16.7 % (11.6-14.6); RBC Distribution Width SD 45.7 fl (35.1-43.9); Red Blood Count 5.64 M/mm3 (4.2-5.4); White Blood Count 10.3 K/mm3 (4.4-11.0)
[2020-08-31 14:47] LABS: Internal QC Validated? YES +Cl - CLEAR BKGD; Pregnancy, Serum, hCG Quali. NEGATIVE Negative
[2020-08-31 14:48] LABS: Anion Gap 4 (5-15); BUN 9 mg/dL (7-18); BUN/Creat Ratio 11.7 RATIO (10-20); Calcium,Total 9.1 mg/dL (8.5-10.1); Chloride 103 mmol/L (98-107); Creatinine, Serum 0.77 mg/dL (0.55-1.02); EST Glomerular Filtration Rate 89 mL/min (>60); Est Glom Filt Rate - Afr Amer 108 mL/min (>60); Estimated Creatinine Clearance 74.75 ml/min; Glucose 110 mg/dL (74-106); Potassium 3.7 mmol/L (3.5-5.1); Sodium Level 141 mmol/L (136-145)
[2020-08-31] MEDS: LORazepam 2 MG/ML Syringe 0.5 MG IV (15:22)
[2020-08-31] MEDS: Ketorolac 30 MG/ML Syringe IV (15:22)
[2020-08-31] MEDS: Ondansetron 4 MG/2 ML Vial IV (15:22)
[2020-08-31 15:28] VITALS: BP 122/70; PULSE 76; RESP 11; O2SAT 98
[2020-08-31] MEDS: Meclizine HCl 25 MG Tablet PO ×2 (16:40→21:15)
[2020-08-31 17:00] VITALS: BP 109/59; PULSE 72; RESP 14; O2SAT 97
--- NOTE | 2020-08-31 17:51 | NURSING ---
DR PADRON FOR DR BELCHER
[2020-08-31 17:52] VITALS: BP 109/59; PULSE 72; RESP 14; TEMP 36.9; O2SAT 97
--- NOTE | 2020-08-31 17:55 | NURSING ---
MED SURG OBS KOTSONIS INTRACTABLE VERTIGO
--- NOTE | 2020-08-31 18:08 | PCM.HP.STD ---
<Lara Yeh [employer] TECHNICIAN - Last Filed: 08/31/20 18:23> Problem List (1) Hypertension Status: Chronic (2) Asthma Status: Chronic (3) GERD (gastroesophageal reflux disease) Status: Chronic (4) Vertigo Status: Acute History of Present Illness Date of Admission: 08/31/20 Chief Complaint: Vertigo. The patient is a 39 year old F who presents emergency room due to vertigo. Patient states this began this morning and has worsened throughout the day. She states she feels like the room is spinning and has associated nausea and headache. She also reports light sensitivity. She denies recent URI. She does report a ladder fell on her head on Sunday. She denies loss of consciousness or symptoms directly following that incident. She denies vision changes. Denies numbness, tingling, unilateral weakness or focal deficits. Denies history of vertigo. She has a past medical history of asthma, GERD, hypertension, depression, morbid obesity. Past Medical History Past Medical History (Chronic Problems): Chronic Problems Hypertension (Chronic) Asthma (Chronic) GERD (gastroesophageal reflux disease) (Chronic) Allergies doxycycline Allergy (Verified 08/31/20 13:34) Hives Sulfa (Sulfonamide Antibiotics) Allergy (Verified 08/31/20 13:34) Hives prednisone Adverse Reaction (Verified 08/31/20 13:34) Pain in joints Home Medications: Ambulatory Orders Medication Instructions Recorded Albuterol Inhaler [Ventolin Hfa] 1 puff INHALATION Q4H PRN PRN 06/18/14 Hydrochlorothiazide [Hctz] 25 mg PO DAILY 11/05/18 Omeprazole [Prilosec] 20 mg PO BID 11/05/18 Sertraline HCl [Zoloft] 100 mg PO DAILY 11/05/18 Zolpidem Tartrate [Ambien] 10 mg PO DAILY 11/05/18 Fluticasone/Vilanterol [Breo 1 puff INHALATION DAILY 08/31/20 Ellipta 100-25 Mcg INH] Metoprolol Succinate [Toprol Xl] 50 mg PO DAILY 08/31/20 dexAMETHasone [Dexamethasone] 2 mg PO DAILY 08/31/20 Surgical History: hysterectomy, tonsillectomy Psychiatric History: No pertinent psych hx [employer]PER[employer]OR History: No pertinent [employer]PER[employer]OR history Lives: With Family Smoking Status: Current every day smoker Tobacco Use: Cigarettes Alcohol: None Drugs: None - *Family History Maternal History Items: Diabetes, Heart Disease Paternal History Items: Diabetes, Heart Disease Review of Systems Constitutional: Denies: Chills, Fever, Weight Change HEENT: Denies: Head Aches, Sinus Congestion, Sinus Drainage Cardiovascular: Denies: Chest Pain, Palpitations Respiratory: Denies: Cough, Shortness of breath at rest, Sputum production Gastrointestinal: Reports: Nausea. Denies: Abdominal Pain, Vomiting Genitourinary: Denies: Dysuria Musculoskeletal: Denies: Joint Pain, Joint Tenderness Skin: Denies: Rash, Wounds Neurological: Reports: Headaches, - - Vertigo. Denies: Focal weakness, Numbness, Tingling Psychiatric: Reports: Anxiety, Depression Hematologic/ Lymphatic: Denies: Easy Bruising, Easy Bleeding VTE Information - Inpt Only VTE Present on Admission: No VTE Mechan Device Prophylaxis: None VTE Pharm Prophylaxis ordered?: No Reason prophylaxis not ordered:: Treatment Not Indicated Patient Problems: Active and Suspected Problems Vertigo (Acute) - Physical Exam Vitals/I&O's: Vital Signs Temp Pulse Resp BP Pulse Ox 98.5 F 72 14 109/59 L 97 08/31/20 17:52 08/31/20 17:52 08/31/20 17:52 08/31/20 17:52 08/31/20 17:52 Oxygen Delivery Method Room Air Weight: 241 lb 2.971 oz Body Mass Index (BMI) 45.6 General: Alert, Oriented x3, Cooperative HEENT: Atraumatic, PERRLA, EOMI, Normocephalic, - - Right gaze nystagmus Neck: Supple, No JVD, Negative Carotid Bruits Lungs: Clear to auscultation, Normal air movement Cardiovascular: Regular rate, No murmurs Abdomen: Bowel Sounds Present, Soft, Non Tender, Obese Extremities: No clubbing, No cyanosis, No edema, Capillary Refill Less than 3 Seconds Skin: No rashes, No breakdown Musculoskeletal: No Tenderness to Palpation of Joints or Extremities Neurological: Cranial nerves II-XII grossly intact, Neuro grossly intact Psych/Mental Status: Normal Affect, Appropriate Laboratory Results 08/31/20 14:25: WBC 10.3, RBC 5.64 H, Hgb 13.4, Hct 43.7, MCV 77.5 L, MCH 23.8 L, MCHC 30.7 L, RDW Std Deviation 45.7 H, RDW Coeff of Rajesh 16.7 H, Plt Count 186, MPV 9.3, Immature Gran % (Auto) 0.400, Neut % (Auto) 75.7 H, Lymph % (Auto) 17.3 L, [place] % (Auto) 5.0, Eos % (Auto) 1.3, Baso % (Auto) 0.3, Absolute Neuts (auto) 7.8 H, Absolute Lymphs (auto) 1.78, Nucleated RBC % 0 08/31/20 14:25: Sodium 141, Potassium 3.7, Chloride 103, Carbon Dioxide 34.0 H, Anion Gap 4 L, BUN 9, Creatinine 0.77, Estim Creat Clear Calc 74.75, Est GFR (MDRD) Af Amer 108, Est GFR (MDRD) Non-Af 89, BUN/Creatinine Ratio 11.7, Glucose 110 H, Calcium 9.1 08/31/20 14:25: Serum , Qual NEGATIVE Assessment/Plan All Active Problems Vertigo (Acute) 1. Vertigo-brain CT normal. Patient received Antivert and Ativan in ER. Scheduled meclizine. As needed antiemetics. PT for vestibular therapy. 2. Asthma-as needed albuterol aerosol. 3. Hypertension-continue HCTZ, metoprolol. 4. Anxiety/depression-on sertraline. 5. GERD- continue PPI. 6. Morbid obesity-encouraged diet lifestyle modifications. 7. Tobacco dependence-current half pack per day smoker. Encouraged cessation. DVT prophylaxis-low risk, not indicated This patient was seen by MATI Nieves under the supervision of Dr. Dobson. <Claudio Dobson F - Last Filed: 08/31/20 20:03> History of Present Illness The patient is a 39 year old F [] Past Medical History Allergies doxycycline Allergy (Verified 08/31/20 13:34) Hives Sulfa (Sulfonamide Antibiotics) Allergy (Verified 08/31/20 13:34) Hives prednisone Adverse Reaction (Verified 08/31/20 13:34) Pain in joints - Physical Exam Vitals/I&O's: Vital Signs Temp Pulse Resp BP Pulse Ox 97.5 F L 72 16 113/78 97 08/31/20 18:45 08/31/20 18:45 08/31/20 18:45 08/31/20 18:45 08/31/20 18:45 Oxygen Delivery Method Room Air Weight: 239 lb 9.6 oz Body Mass Index (BMI) 44.9 Intake and Output for Last 24 Hours 08/29/20 08/30/20 08/31/20 23:59 23:59 23:59 Intake Total 500 / 500 Balance 500 / 500 Laboratory Results 08/31/20 14:25: WBC 10.3, RBC 5.64 H, Hgb 13.4, Hct 43.7, MCV 77.5 L, MCH 23.8 L, MCHC 30.7 L, RDW Std Deviation 45.7 H, RDW Coeff of Rajesh 16.7 H, Plt Count 186, MPV 9.3, Immature Gran % (Auto) 0.400, Neut % (Auto) 75.7 H, Lymph % (Auto) 17.3 L, [place] % (Auto) 5.0, Eos % (Auto) 1.3, Baso % (Auto) 0.3, Absolute Neuts (auto) 7.8 H, Absolute Lymphs (auto) 1.78, Nucleated RBC % 0 08/31/20 14:25: Sodium 141, Potassium 3.7, Chloride 103, Carbon Dioxide 34.0 H, Anion Gap 4 L, BUN 9, Creatinine 0.77, Estim Creat Clear Calc 74.75, Est GFR (MDRD) Af Amer 108, Est GFR (MDRD) Non-Af 89, BUN/Creatinine Ratio 11.7, Glucose 110 H, Calcium 9.1 08/31/20 14:25: Serum , Qual NEGATIVE Current Medications Acetaminophen (Acetaminophen 325 Mg Tablet) 650 mg PO Q6H PRN PRN PRN Reason: Pain Score 1-10/Temp > 100.7 F Last Admin: 08/31/20 18:51 Dose: 650 mg Documented by: Albuterol Sulfate (Albuterol Sulfate 8 Gm Inhaler (60 Puffs)) 1 puff INHALATION Q4H PRN PRN PRN Reason: SOB &/OR WHEEZING Dexamethasone (Dexamethasone 2 Mg Tablet) 2 mg PO DAILY [facility] Hydrochlorothiazide (Hydrochlorothiazide 25 Mg Tablet) 25 mg PO DAILY [facility] Sodium Chloride () 1,000 mls @ 100 mls/hr IV .Q10H [facility]IP Last Admin: 08/31/20 19:07 Dose: 100 mls/hr Documented by: Influenza Virus Vaccine Quadrival (Influenza Vaccine (6mos+)/Pf 0.5 Ml Syringe) 0.5 ml IM .ONCE ONE Stop: 09/01/20 10:01 Meclizine HCl (Meclizine Hcl 25 Mg Tablet) 25 mg PO 4X/DAY PRN PRN PRN Reason: DIZZINESS Melatonin (Melatonin 3 Mg Tablet) 3 mg PO QHS PRN PRN PRN Reason: INSOMNIA Metoprolol Succinate (Metoprolol(Xl)Succ 50 Mg Tablet) 50 mg PO DAILY [facility] Non-Formulary Medication (Omeprazole) 20 mg PO BID [facility] Non-Formulary Medication (Zolpidem Tartrate [Ambien]) 10 mg PO DAILY [facility] Non-Formulary Medication (Fluticasone/Vilanterol) 1 puff INHALATION DAILY [facility] Ondansetron HCl (Ondansetron 4 Mg/2 Ml Vial) 4 mg IV Q8H PRN PRN PRN Reason: NAUSEA/VOMITING Sertraline HCl (Sertraline 100 Mg Tablet) 100 mg PO DAILY [facility] Sodium Chloride (0.9% Saline Lock 10 Ml Syringe) 10 - 40 ml IV UD PRN PRN Reason: SALINE FLUSH Last Admin: 08/31/20 19:07 Dose: 10 ml Documented by: Addendum: Dr. Dobson I personally examined the patient and reviewed the chart. I agree with the above. 39-year-old female presents to the emergency room secondary to vertigo. She was hit in the head on Sunday with a ladder that was knocked over by her son. She felt fine on Sunday and Sunday and then this morning she woke up that she had an episode of vertigo when she was getting him ready which only lasted a few minutes and then resolved. And then she went to lay down and when she woke up she had constant vertigo and felt like she would need to be able to walk. She had a difficult time describing the sensation and whether or not she was spinning of the room was spinning. But she did have a slight nystagmus to the right on physical exam. We will continue with meclizine she did receive Valium and a CT of the head in the ER. And see if she has any improvement in symptoms tomorrow morning. OBSV E&M: 94051 Initial observation care L2
[2020-08-31 18:38] VITALS: BMI 45.6
[2020-08-31 18:41] VITALS: BMI 44.9
[2020-08-31 18:45] VITALS: BP 113/78; PULSE 72; RESP 16; TEMP 36.4; O2SAT 97
[2020-08-31] MEDS: Acetaminophen 325 MG Tablet 650 MG PO (18:51)
[2020-08-31] MEDS: 0.9% Normal Saline 1,000 ML 100 ML IV (19:07)
[2020-08-31] MEDS: 0.9% Saline Lock 10 ML Syringe IV (19:07)
--- NOTE | 2020-08-31 20:26 | CPS ---
PATIENT REFUSED DUONEB AND PULMICORT AT TIME OF VISIT.
[2020-08-31 20:27] VITALS: O2SAT 93
[2020-08-31] MEDS: Pantoprazole Sodium 20 MG Tablet PO (21:15)
[2020-08-31] MEDS: Zolpidem Tartrate 5 MG Tablet PO (21:15)
[2020-09-01] VITALS (9 sets, daily range): BP systolic 109–150; BP diastolic 58–92; PULSE 67–85; RESP 16–18; TEMP 36.3–36.7; O2SAT 96–98
[2020-09-01] MEDS: Acetaminophen 325 MG Tablet 650 MG PO ×3 (04:44→18:13)
[2020-09-01] MEDS: Meclizine HCl 25 MG Tablet PO ×3 (04:44→18:13)
[2020-09-01] MEDS: 0.9% Normal Saline 1,000 ML 100 ML IV (04:45)
[2020-09-01 06:03] LABS: Absolute Lymphocyte Count 2.03 X10^3/uL (0.83-4.51); Basophil# 0.02 X10^3/uL; Basophil% 0.2 % (0-1); Eosinophil# 0.14 X10^3/uL; Eosinophils% 1.6 % (0-5); Hematocrit 38.9 % (37-47); Hemoglobin 11.5 g/dL (12.0-15.0); Lymphocyte # 2.03 X10^3/ul (4.0); Lymphocyte % 23.5 % (19-41); Mean Corp Hgb Conc 29.6 g/dL (32-36); Mean Corpuscular Hgb 23.1 pg (27.0-32.0); Mean Corpuscular Volume 78.1 fL (81-99); Mean Platelet Vol. 9.3 fl (6.2-12.0); Monocyte# 0.43 X10^3/uL; NRBC Flagged by Analyzer 0 % (0-5); Neutrophil % 69.4 % (47-70); Platelet Count 176 K/mm3 (150-450); RBC Distribution Width CV 16.4 % (11.6-14.6); RBC Distribution Width SD 46.2 fl (35.1-43.9); Red Blood Count 4.98 M/mm3 (4.2-5.4); White Blood Count 8.7 K/mm3 (4.4-11.0)
[2020-09-01 06:28] LABS: Anion Gap 3 (5-15); BUN 9 mg/dL (7-18); BUN/Creat Ratio 11.7 RATIO (10-20); Calcium,Total 8.1 mg/dL (8.5-10.1); Chloride 108 mmol/L (98-107); Creatinine, Serum 0.77 mg/dL (0.55-1.02); EST Glomerular Filtration Rate 89 mL/min (>60); Est Glom Filt Rate - Afr Amer 108 mL/min (>60); Estimated Creatinine Clearance 74.75 ml/min; Glucose 117 mg/dL (74-106); Potassium 3.2 mmol/L (3.5-5.1); Sodium Level 141 mmol/L (136-145)
[2020-09-01] MEDS: Budesonide Respules 0.5 MG/2 ML AMPUL.NEB. INHALATION ×2 (07:12→19:41)
[2020-09-01] MEDS: Albuterol 2.5 MG/3 ML VIAL.NEB. INHALATION (07:12)
[2020-09-01] MEDS: dexAMETHasone 2 MG TABLET PO (08:21)
[2020-09-01] MEDS: Metoprolol(XL)Succ 50 MG Tablet PO (09:38)
[2020-09-01] MEDS: hydroCHLOROthiazide 25 MG Tablet PO (09:38)
[2020-09-01] MEDS: Pantoprazole Sodium 20 MG Tablet PO ×3 (09:38→21:53)
[2020-09-01] MEDS: Sertraline 100 MG Tablet PO (09:38)
[2020-09-01] MEDS: 0.9% Saline Lock 10 ML Syringe IV ×3 (09:38→21:43)
[2020-09-01 10:14] LABS: Magnesium 1.7 mg/dL (1.6-2.6)
--- NOTE | 2020-09-01 10:42 | DS.PCM_ITS ---
Discharge Date and Diagnosis - Problem List Patient Problems: Active and Suspected Problems Vertigo (Acute) Date of Admission: 08/31/20 Date of Discharge: 09/01/20 - Primary Discharge Diagnosis Acute Problems: Active Problems Vertigo (Acute) - Secondary Discharge Diagnosis Chronic Problems: Chronic Problems Hypertension (Chronic) Asthma (Chronic) GERD (gastroesophageal reflux disease) (Chronic) Hospital Course and Treatment Summary of Care Provided: The patient is a 39 year old F [] Patient Problems: Active and Suspected Problems Vertigo (Acute) - Physical Exam Vitals/I&O's: Vital Signs Temp Pulse Resp BP Pulse Ox 97.9 F 76 18 145/76 H 96 09/01/20 05:40 09/01/20 09:38 09/01/20 07:13 09/01/20 05:40 09/01/20 05:40 Oxygen Delivery Method Room Air Weight: 239 lb 9.6 oz Body Mass Index (BMI) 44.9 Intake and Output for Last 24 Hours 08/30/20 08/31/20 09/01/20 23:59 23:59 23:59 Intake Total 500 / 700 1763.33 / 1763.33 Balance 500 / 700 1763.33 / 1763.33 Laboratory Results 08/31/20 14:25: WBC 10.3, RBC 5.64 H, Hgb 13.4, Hct 43.7, MCV 77.5 L, MCH 23.8 L , MCHC 30.7 L, RDW Std Deviation 45.7 H, RDW Coeff of Rajesh 16.7 H, Plt Count 186, MPV 9.3, Immature Gran % (Auto) 0.400, Neut % (Auto) 75.7 H, Lymph % (Auto) 17.3 L, [place] % (Auto) 5.0, Eos % (Auto) 1.3, Baso % (Auto) 0.3, Absolute Neuts (auto) 7.8 H, Absolute Lymphs (auto) 1.78, Nucleated RBC % 0 08/31/20 14:25: Sodium 141, Potassium 3.7, Chloride 103, Carbon Dioxide 34.0 H, Anion Gap 4 L, BUN 9, Creatinine 0.77, Estim Creat Clear Calc 74.75, Est GFR (MDRD) Af Amer 108, Est GFR (MDRD) Non-Af 89, BUN/Creatinine Ratio 11.7, Glucose 110 H, Calcium 9.1 08/31/20 14:25: Serum , Qual NEGATIVE 09/01/20 05:15: WBC 8.7, RBC 4.98, Hgb 11.5 L, Hct 38.9, MCV 78.1 L, MCH 23.1 L, MCHC 29.6 L, RDW Std Deviation 46.2 H, RDW Coeff of Rajesh 16.4 H, Plt Count 176, MPV 9.3, Immature Gran % (Auto) 0.300, Neut % (Auto) 69.4, Lymph % (Auto) 23.5, [place] % (Auto) 5.0, Eos % (Auto) 1.6, Baso % (Auto) 0.2, Absolute Neuts (auto) 6.0, Absolute Lymphs (auto) 2.03, Nucleated RBC % 0 09/01/20 05:15: Sodium 141, Potassium 3.2 L, Chloride 108 H, Carbon Dioxide 30.0, Anion Gap 3 L, BUN 9, Creatinine 0.77, Estim Creat Clear Calc 74.75, Est GFR (MDRD) Af Amer 108, Est GFR (MDRD) Non-Af 89, BUN/Creatinine Ratio 11.7, Glucose 117 H, Calcium 8.1 L 09/01/20 05:15: Phosphorus 3.0, Magnesium 1.7 09/01/20 05:15: Phosphorus Cancelled Current Medications Acetaminophen (Acetaminophen 325 Mg Tablet) 650 mg PO Q6H PRN PRN PRN Reason: Pain Score 1-10/Temp > 100.7 F Last Admin: 09/01/20 04:44 Dose: 650 mg Documented by: Albuterol Sulfate (Albuterol 2.5 Mg/3 Ml Vial.Neb.) 2.5 mg INHALATION Q4H PRN PRN Reason: SOB &/OR WHEEZING Albuterol Sulfate (Albuterol 2.5 Mg/3 Ml Vial.Neb.) 2.5 mg INHALATION Q6HWA.RT SANDIP Last Admin: 09/01/20 07:12 Dose: 2.5 mg Documented by: Budesonide (Budesonide Respules 0.5 Mg/2 Ml Ampul.Neb.) 0.5 mg INHALATION Q12H .RT SANDIP Last Admin: 09/01/20 07:12 Dose: 0.5 mg Documented by: Dexamethasone Sodium Phosphate (Dexamethasone 4 Mg/Ml Vial) 4 mg IV Q8 [facility] Hydrochlorothiazide (Hydrochlorothiazide 25 Mg Tablet) 25 mg PO DAILY [facility] Last Admin: 09/01/20 09:38 Dose: 25 mg Documented by: Meclizine HCl (Meclizine Hcl 25 Mg Tablet) 25 mg PO 4X/DAY PRN PRN PRN Reason: DIZZINESS Last Admin: 09/01/20 04:44 Dose: 25 mg Documented by: Melatonin (Melatonin 3 Mg Tablet) 3 mg PO QHS PRN PRN PRN Reason: INSOMNIA Metoprolol Succinate (Metoprolol(Xl)Succ 50 Mg Tablet) 50 mg PO DAILY [facility] Last Admin: 09/01/20 09:38 Dose: 50 mg Documented by: Ondansetron HCl (Ondansetron 4 Mg/2 Ml Vial) 4 mg IV Q8H PRN PRN PRN Reason: NAUSEA/VOMITING Pantoprazole Sodium (Pantoprazole Sodium 20 Mg Tablet) 20 mg PO BID [facility] Last Admin: 09/01/20 09:38 Dose: 20 mg Documented by: Potassium Chloride (Potassium Chloride 20 Meq Tablet) 40 meq PO Q3H [facility] Stop: 09/01/20 13:01 Sertraline HCl (Sertraline 100 Mg Tablet) 100 mg PO DAILY [facility] Last Admin: 09/01/20 09:38 Dose: 100 mg Documented by: Sodium Chloride (0.9% Saline Lock 10 Ml Syringe) 10 - 40 ml IV UD PRN PRN Reason: SALINE FLUSH Last Admin: 09/01/20 09:38 Dose: 10 ml Documented by: Zolpidem Tartrate (Zolpidem Tartrate 5 Mg Tablet) 5 mg PO QHS [facility] Last Admin: 08/31/20 21:15 Dose: 5 mg Documented by: Home Medications: Medications to take at Discharge Albuterol Inhaler [Ventolin Hfa] 1 puff INHALATION Q4H PRN PRN 06/18/14 Hydrochlorothiazide [Hctz] 25 mg PO DAILY 11/05/18 Omeprazole [Prilosec] 20 mg PO BID 11/05/18 Sertraline HCl [Zoloft] 100 mg PO DAILY 11/05/18 Zolpidem Tartrate [Ambien] 10 mg PO DAILY 11/05/18 Fluticasone/Vilanterol [Breo Ellipta 100-25 Mcg INH] 1 puff INHALATION DAILY 08/31/20 Metoprolol Succinate [Toprol Xl] 50 mg PO DAILY 08/31/20 dexAMETHasone [Dexamethasone] 2 mg PO DAILY 08/31/20 Primary Care Physician: Lane Painting MD [Primary Care Provider] - Medical Necessity - Tobacco Use Smoking Status: Current every day smoker Tobacco Use: Cigarettes
--- NOTE | 2020-09-01 10:42 | DCINST_ITS ---
- Discharge Diagnoses Current Active Problems: Current Active and Chronic Problems Hypertension (Chronic) Asthma (Chronic) GERD (gastroesophageal reflux disease) (Chronic) Vertigo (Acute) Allergies/Adverse Reactions: Allergies doxycycline Allergy (Verified 08/31/20 13:34) Hives Sulfa (Sulfonamide Antibiotics) Allergy (Verified 08/31/20 13:34) Hives prednisone Adverse Reaction (Verified 08/31/20 13:34) Pain in joints Medications to take at Discharge Albuterol Inhaler [Ventolin Hfa] 1 puff INHALATION Q4H PRN PRN 06/18/14 Hydrochlorothiazide [Hctz] 25 mg PO DAILY 11/05/18 Omeprazole [Prilosec] 20 mg PO BID 11/05/18 Sertraline HCl [Zoloft] 100 mg PO DAILY 11/05/18 Zolpidem Tartrate [Ambien] 10 mg PO DAILY 11/05/18 Fluticasone/Vilanterol [Breo Ellipta 100-25 Mcg INH] 1 puff INHALATION DAILY 08/31/20 Metoprolol Succinate [Toprol Xl] 50 mg PO DAILY 08/31/20 dexAMETHasone [Dexamethasone] 2 mg PO DAILY 08/31/20 Primary Care Physician: Lane Painting MD [Primary Care Provider] - Test Results: Test results from this visit will be discussed in further detail at your follow- up appointment, if applicable.
[2020-09-01] MEDS: diazePAM 5 MG Tablet PO (11:24)
[2020-09-01] MEDS: dexAMETHasone 4 MG/ML Vial IV ×2 (13:02→21:40)
--- NOTE | 2020-09-01 13:34 | PN_ITS ---
Patient Problems: Active and Suspected Problems Vertigo (Acute) Reason for Visit: Follow-up for vertigo, debilitating. Objective: Patient still has vertigo, made worse by changing the position from laying to sitting up. She has a spinning sensation acid with nausea and headache. She was given dexamethasone and she feels better in afternoon. Physical exam General: Alert, Oriented x3, Cooperative, morbid obesity BMI 44.9 kg/m? HEENT: Atraumatic, PERRLA, EOMI, Normocephalic. No nystagmus observed on changing position of head. No hearing loss Oral: No Gingival or Mucosal Lesions/ Ulcerations Neck: Supple, No JVD, Negative Carotid Bruits Lungs: Air entry equal in bilateral lung bases. No crepitation/rhonchi Cardiovascular: Regular rate, Regular Rhythm, Normal S1, Normal S2, No murmurs Abdomen: Bowel Sounds Present, Soft, Non Tender, Non-Distended : No renal angle tenderness. No suprapubic tenderness. Extremities: No edema, Capillary Refill Less than 3 Seconds Skin: No rashes, No breakdown Musculoskeletal: No Tenderness to Palpation of Joints or Extremities Neurological: Cranial nerves II-XII grossly intact, Deep Tendon Reflexes 2+/4 and Symmetrical, Neuro grossly intact Psych/Mental Status: Normal Affect, Appropriate. Vitals/I&O's: Vital Signs Temp Pulse Resp BP Pulse Ox 97.4 F L 84 16 135/89 H 98 09/01/20 11:26 09/01/20 11:26 09/01/20 11:26 09/01/20 11:26 09/01/20 11:26 Oxygen Delivery Method Room Air Weight: 239 lb 9.6 oz Body Mass Index (BMI) 44.9 Intake and Output for Last 24 Hours 08/30/20 08/31/20 09/01/20 23:59 23:59 23:59 Intake Total 500 / 700 2163.33 / 2163.33 Output Total 400 / 400 Balance 500 / 700 1763.33 / 1763.33 Laboratory Results 08/31/20 14:25: WBC 10.3, RBC 5.64 H, Hgb 13.4, Hct 43.7, MCV 77.5 L, MCH 23.8 L , MCHC 30.7 L, RDW Std Deviation 45.7 H, RDW Coeff of Rajesh 16.7 H, Plt Count 186, MPV 9.3, Immature Gran % (Auto) 0.400, Neut % (Auto) 75.7 H, Lymph % (Auto) 17.3 L, [place] % (Auto) 5.0, Eos % (Auto) 1.3, Baso % (Auto) 0.3, Absolute Neuts (auto) 7.8 H, Absolute Lymphs (auto) 1.78, Nucleated RBC % 0 08/31/20 14:25: Sodium 141, Potassium 3.7, Chloride 103, Carbon Dioxide 34.0 H, Anion Gap 4 L, BUN 9, Creatinine 0.77, Estim Creat Clear Calc 74.75, Est GFR (MDRD) Af Amer 108, Est GFR (MDRD) Non-Af 89, BUN/Creatinine Ratio 11.7, Glucose 110 H, Calcium 9.1 08/31/20 14:25: Serum , Qual NEGATIVE 09/01/20 05:15: WBC 8.7, RBC 4.98, Hgb 11.5 L, Hct 38.9, MCV 78.1 L, MCH 23.1 L, MCHC 29.6 L, RDW Std Deviation 46.2 H, RDW Coeff of Rajesh 16.4 H, Plt Count 176, MPV 9.3, Immature Gran % (Auto) 0.300, Neut % (Auto) 69.4, Lymph % (Auto) 23.5, [place] % (Auto) 5.0, Eos % (Auto) 1.6, Baso % (Auto) 0.2, Absolute Neuts (auto) 6.0, Absolute Lymphs (auto) 2.03, Nucleated RBC % 0 09/01/20 05:15: Sodium 141, Potassium 3.2 L, Chloride 108 H, Carbon Dioxide 30.0, Anion Gap 3 L, BUN 9, Creatinine 0.77, Estim Creat Clear Calc 74.75, Est GFR (MDRD) Af Amer 108, Est GFR (MDRD) Non-Af 89, BUN/Creatinine Ratio 11.7, Glucose 117 H, Calcium 8.1 L 09/01/20 05:15: Phosphorus 3.0, Magnesium 1.7 09/01/20 05:15: Phosphorus Cancelled Current Medications Acetaminophen (Acetaminophen 325 Mg Tablet) 650 mg PO Q6H PRN PRN PRN Reason: Pain Score 1-10/Temp > 100.7 F Last Admin: 09/01/20 11:25 Dose: 650 mg Documented by: Albuterol Sulfate (Albuterol 2.5 Mg/3 Ml Vial.Neb.) 2.5 mg INHALATION Q4H PRN PRN Reason: SOB &/OR WHEEZING Albuterol Sulfate (Albuterol 2.5 Mg/3 Ml Vial.Neb.) 2.5 mg INHALATION Q6HWA.RT [facility] Last Admin: 09/01/20 07:12 Dose: 2.5 mg Documented by: Budesonide (Budesonide Respules 0.5 Mg/2 Ml Ampul.Neb.) 0.5 mg INHALATION Q12H.RT [facility] Last Admin: 09/01/20 07:12 Dose: 0.5 mg Documented by: Dexamethasone Sodium Phosphate (Dexamethasone 4 Mg/Ml Vial) 4 mg IV Q8 [facility] Last Admin: 09/01/20 13:02 Dose: 4 mg Documented by: Hydrochlorothiazide (Hydrochlorothiazide 25 Mg Tablet) 25 mg PO DAILY [facility] Last Admin: 09/01/20 09:38 Dose: 25 mg Documented by: Meclizine HCl (Meclizine Hcl 25 Mg Tablet) 25 mg PO 4X/DAY PRN PRN PRN Reason: DIZZINESS Last Admin: 09/01/20 13:04 Dose: 25 mg Documented by: Melatonin (Melatonin 3 Mg Tablet) 3 mg PO QHS PRN PRN PRN Reason: INSOMNIA Metoprolol Succinate (Metoprolol(Xl)Succ 50 Mg Tablet) 50 mg PO DAILY [facility] Last Admin: 09/01/20 09:38 Dose: 50 mg Documented by: Ondansetron HCl (Ondansetron 4 Mg/2 Ml Vial) 4 mg IV Q8H PRN PRN PRN Reason: NAUSEA/VOMITING Pantoprazole Sodium (Pantoprazole Sodium 20 Mg Tablet) 20 mg PO BID [facility] Last Admin: 09/01/20 09:38 Dose: 20 mg Documented by: Sertraline HCl (Sertraline 100 Mg Tablet) 100 mg PO DAILY [facility] Last Admin: 09/01/20 09:38 Dose: 100 mg Documented by: Sodium Chloride (0.9% Saline Lock 10 Ml Syringe) 10 - 40 ml IV UD PRN PRN Reason: SALINE FLUSH Last Admin: 09/01/20 13:02 Dose: 10 ml Documented by: Zolpidem Tartrate (Zolpidem Tartrate 5 Mg Tablet) 5 mg PO QHS [facility] Last Admin: 08/31/20 21:15 Dose: 5 mg Documented by: STROKE Vital Signs/Narrative: Vital Signs Temp Pulse Resp BP Pulse Ox 09/01/20 11:26 97.4 F L 84 16 135/89 H 98 09/01/20 09:38 76 Medical Necessity - Tobacco Use Smoking Status: Current every day smoker Tobacco Use: Cigarettes Assessment/Plan All Active Problems Vertigo (Acute) This 39-year-old female was admitted with debilitating vertigo associated with nausea and headache. She denies any recent URI. She has on and off dizziness and vertigo for about 4 to 6 months. It was precipitated when ladder fall on her head accidentally. She denies numbness, tingling, weakness, change in his speech, dysphagia although she feels mild imbalance and afraid to stand up or walk 1. Vertigo, exact etiology unclear, suspect BPPV: Patient got 1 dose of Valium which she stated made dizziness worse. Dexamethasone dose increased to 4 mg IV every 8 hourly. PT and OT to evaluate for Tyrone maneuver. On symptomatic management with Antivert. 2. Asthma: Patient is on albuterol as needed and budesonide nebulization 3. Hypertension-continue HCTZ, metoprolol. 4. Anxiety/depression-on sertraline. 5. GERD- continue PPI. 6. Morbid obesity-encouraged diet lifestyle modifications. 7. Tobacco dependence-current half pack per day smoker. Encouraged cessation. DVT prophylaxis-moderate is secondary to obesity. On Lovenox 40 mg subcu daily. Inpatient E&M: 85091 Subs Hosp L2
[2020-09-01] MEDS: Enoxaparin 40 MG/0.4 ML Syringe SC (14:34)
[2020-09-01] MEDS: MELATONIN 3 MG TABLET PO ×2 (21:40→21:55)
[2020-09-01] MEDS: Zolpidem Tartrate 5 MG Tablet PO ×2 (21:40→21:55)
[2020-09-02] VITALS (7 sets, daily range): BP systolic 112–144; BP diastolic 58–76; PULSE 67–74; RESP 16–18; TEMP 36.6–36.7; O2SAT 97–99
[2020-09-02] MEDS: Meclizine HCl 25 MG Tablet PO ×2 (05:09→12:37)
[2020-09-02] MEDS: Budesonide Respules 0.5 MG/2 ML AMPUL.NEB. INHALATION ×2 (07:27→20:07)
[2020-09-02] MEDS: Acetaminophen 325 MG Tablet 650 MG PO ×2 (07:51→21:41)
[2020-09-02 09:09] LABS: Anion Gap 5 (5-15); BUN 12 mg/dL (7-18); Calcium,Total 9.4 mg/dL (8.5-10.1); Chloride 105 mmol/L (98-107); EST Glomerular Filtration Rate 98 mL/min (>60); Est Glom Filt Rate - Afr Amer 119 mL/min (>60); Estimated Creatinine Clearance 82.23 ml/min; Glucose 131 mg/dL (74-106); Potassium 4.1 mmol/L (3.5-5.1); Sodium Level 137 mmol/L (136-145)
[2020-09-02] MEDS: Pantoprazole Sodium 20 MG Tablet PO ×2 (10:00→21:42)
[2020-09-02] MEDS: hydroCHLOROthiazide 25 MG Tablet PO (10:00)
[2020-09-02] MEDS: Metoprolol(XL)Succ 50 MG Tablet PO (10:00)
[2020-09-02] MEDS: dexAMETHasone 4 MG/ML Vial IV ×2 (10:00→21:40)
[2020-09-02] MEDS: Enoxaparin 40 MG/0.4 ML Syringe SC (10:00)
[2020-09-02] MEDS: Sertraline 100 MG Tablet PO (10:00)
[2020-09-02] MEDS: 0.9% Saline Lock 10 ML Syringe IV (10:01)
--- NOTE | 2020-09-02 11:18 | PN_ITS ---
Patient Problems: Active and Suspected Problems Vertigo (Acute) Subjective: Patient seen and examined. She still complains of feeling lightheadedness and dizziness, especially with movement. Review of systems was otherwise negative. She has remained hemodynamically stable. She doesn't feel well enough to go home today. Vitals/I&O's: Vital Signs Temp Pulse Resp BP Pulse Ox 98.0 F 73 18 124/76 H 99 09/02/20 09:56 09/02/20 10:00 09/02/20 09:56 09/02/20 09:56 09/02/20 09:56 Oxygen Delivery Method Room Air Weight: 239 lb 9.6 oz Body Mass Index (BMI) 44.9 Intake and Output for Last 24 Hours 08/31/20 09/01/20 09/02/20 23:59 23:59 23:59 Intake Total 500 / 700 3701.66 / 3701.66 300 / 300 Output Total 1950 / 1950 Balance 500 / 700 1751.66 / 1751.66 300 / 300 General: Alert, Oriented x3, Cooperative HEENT: Atraumatic, PERRLA, EOMI, Normocephalic Oral: Dry Mucosa Neck: Supple, No JVD, Negative Carotid Bruits Lungs: Clear to auscultation, Normal air movement, No rhonchi, No wheeze, No rales Cardiovascular: Regular rate, Regular Rhythm, Normal S1, Normal S2, No murmurs Abdomen: Bowel Sounds Present, Soft, Non Tender Extremities: No edema, Capillary Refill Less than 3 Seconds Skin: No rashes, No breakdown Musculoskeletal: No Tenderness to Palpation of Joints or Extremities Lymphatic: No Cervical, Supraclavicular, or Inguinal Adenopathy Neurological: Cranial nerves II-XII grossly intact, Neuro grossly intact, Motor Exam 5/5 strength throughout Psych/Mental Status: Normal Affect, Appropriate, Alert and oriented to time, place, person, mood and affect Laboratory Results 09/02/20 08:07: Sodium 137, Potassium 4.1, Chloride 105, Carbon Dioxide 27.0, Anion Gap 5, BUN 12, Creatinine 0.70, Estim Creat Clear Calc 82.23, Est GFR (MDRD) Af Amer 119, Est GFR (MDRD) Non-Af 98, BUN/Creatinine Ratio 17.0, Glucose 131 H, Calcium 9.[address] 08/31/20 14:09 IMPRESSION: Normal CT scan of the head. Electronically Signed: Shravan Clifford, at 15:09 EST Tel , Service support , Current Medications Acetaminophen (Acetaminophen 325 Mg Tablet) 650 mg PO Q6H PRN PRN PRN Reason: Pain Score 1-10/Temp > 100.7 F Last Admin: 09/02/20 07:51 Dose: 650 mg Documented by: Albuterol Sulfate (Albuterol 2.5 Mg/3 Ml Vial.Neb.) 2.5 mg INHALATION Q4H PRN PRN Reason: SOB &/OR WHEEZING Budesonide (Budesonide Respules 0.5 Mg/2 Ml Ampul.Neb.) 0.5 mg INHALATION Q12H.RT [facility] Last Admin: 09/02/20 07:27 Dose: 0.5 mg Documented by: Dexamethasone Sodium Phosphate (Dexamethasone 4 Mg/Ml Vial) 4 mg IV Q12 [facility] Last Admin: 09/02/20 10:00 Dose: 4 mg Documented by: Enoxaparin Sodium (Enoxaparin 40 Mg/0.4 Ml Syringe) 40 mg SC DAILY [facility] Last Admin: 09/02/20 10:00 Dose: 40 mg Documented by: Hydrochlorothiazide (Hydrochlorothiazide 25 Mg Tablet) 25 mg PO DAILY [facility] Last Admin: 09/02/20 10:00 Dose: 25 mg Documented by: Meclizine HCl (Meclizine Hcl 25 Mg Tablet) 25 mg PO 4X/DAY PRN PRN PRN Reason: DIZZINESS Last Admin: 09/02/20 05:09 Dose: 25 mg Documented by: Melatonin (Melatonin 3 Mg Tablet) 3 mg PO QHS PRN PRN PRN Reason: INSOMNIA Last Admin: 09/01/20 21:55 Dose: 3 mg Documented by: Metoprolol Succinate (Metoprolol(Xl)Succ 50 Mg Tablet) 50 mg PO DAILY [facility] Last Admin: 09/02/20 10:00 Dose: 50 mg Documented by: Ondansetron HCl (Ondansetron 4 Mg/2 Ml Vial) 4 mg IV Q8H PRN PRN PRN Reason: NAUSEA/VOMITING Pantoprazole Sodium (Pantoprazole Sodium 20 Mg Tablet) 20 mg PO BID [facility] Last Admin: 09/02/20 10:00 Dose: 20 mg Documented by: Sertraline HCl (Sertraline 100 Mg Tablet) 100 mg PO DAILY [facility] Last Admin: 09/02/20 10:00 Dose: 100 mg Documented by: Sodium Chloride (0.9% Saline Lock 10 Ml Syringe) 10 - 40 ml IV UD PRN PRN Reason: SALINE FLUSH Last Admin: 09/02/20 10:01 Dose: 10 ml Documented by: Zolpidem Tartrate (Zolpidem Tartrate 5 Mg Tablet) 5 mg PO QHS [facility] Last Admin: 09/01/20 21:55 Dose: 5 mg Documented by: STROKE Vital Signs/Narrative: Vital Signs Temp Pulse Resp BP Pulse Ox 09/02/20 10:00 73 09/02/20 09:56 98.0 F 73 18 124/76 H 99 09/02/20 07:27 70 16 97 Medical Necessity - Tobacco Use Smoking Status: Current every day smoker Tobacco Use: Cigarettes Assessment/Plan All Active Problems Vertigo (Acute) #Vertigo, most likely due to BPPV * still complains of dizziness, worse with movement and resolves with laying still * on IV dexamethasone and meclizine * PT/OT on board * CT of the brain was normal * # Asthma: not in exacerbation. On breathing treatment with bronchodilators. #Hypertension: on HCTZ and metoprolol. # Anxiety and depression: on sertraline. #GERD: on PPI Morbid obesity; BMI is>40. Encourage lifestyle modifications. Plicate acute care, prognosis and expected recovery. #Nicotine dependence: counseled to quit. DVT prophylaxis: lovenox. OBSV E&M: 50335 Subsequent observation care L2
[2020-09-02] MEDS: Zolpidem Tartrate 5 MG Tablet PO (21:41)
[2020-09-02] MEDS: MELATONIN 3 MG TABLET PO (21:42)
[2020-09-03 02:45] VITALS: BP 111/61; PULSE 56; RESP 18; TEMP 36.7; O2SAT 95
[2020-09-03 07:01] VITALS: PULSE 74; RESP 16; O2SAT 96
[2020-09-03] MEDS: Budesonide Respules 0.5 MG/2 ML AMPUL.NEB. INHALATION (07:01)
[2020-09-03] MEDS: Acetaminophen 325 MG Tablet 650 MG PO (07:41)
[2020-09-03] MEDS: Meclizine HCl 25 MG Tablet PO (07:41)
--- NOTE | 2020-09-03 09:28 | PCM.DC ---
- Discharge Diagnoses Current Active Problems: Current Active and Chronic Problems Hypertension (Chronic) Asthma (Chronic) GERD (gastroesophageal reflux disease) (Chronic) Vertigo (Acute) You will use the following diet at home:: Cardiac Your food should be the consistency of: Regular Your liquids should be the consistency of: Regular/Thin Discharge Activity: Return to Normal Activity Weight Bearing Status: Weight bearing as tolerated Call your doctor if you observe: Fever of 101 or Higher, Shortness of breath, Dizziness, Fainting spells Instructions: ED Dizziness UKO, ED BPV Vertigo, Inner Ear Problems: Causes of Dizziness (Vertigo) Allergies/Adverse Reactions: Allergies doxycycline Allergy (Verified 08/31/20 13:34) Hives Sulfa (Sulfonamide Antibiotics) Allergy (Verified 08/31/20 13:34) Hives prednisone Adverse Reaction (Verified 08/31/20 13:34) Pain in joints Medications to take at Discharge Albuterol Inhaler [Ventolin Hfa] 1 puff INHALATION Q4H PRN PRN 06/18/14 Hydrochlorothiazide [Hctz] 25 mg PO DAILY 11/05/18 Omeprazole [Prilosec] 20 mg PO BID 11/05/18 Sertraline HCl [Zoloft] 100 mg PO DAILY 11/05/18 Zolpidem Tartrate [Ambien] 10 mg PO DAILY 11/05/18 Fluticasone/Vilanterol [Breo Ellipta 100-25 Mcg INH] 1 puff INHALATION DAILY 08/31/20 Metoprolol Succinate [Toprol Xl] 50 mg PO DAILY 08/31/20 dexAMETHasone [Dexamethasone] 2 mg PO DAILY 08/31/20 Meclizine HCl [Antivert] 25 mg PO 4X/DAY PRN PRN #30 tab 09/03/20 The following prescriptions were given: Meclizine HCl [Antivert] 25 mg PO 4X/DAY PRN PRN #30 tab PRN Reason: Dizziness Transmission Status: Pending to [facility]/pharmacy #[id number] Primary Care Physician: Lane Painting MD [Primary Care Provider] - Please follow up with your Primary Care Physician in: 1-2 weeks Test Results: Test results from this visit will be discussed in further detail at your follow-up appointment, if applicable. Proposed Discharge Date: 09/03/20
--- NOTE | 2020-09-03 09:29 | PCM.WORK.EX ---
Work/School Excuse Work/School Excuse for:: Patient Please excuse this person from:: Work From: 09/03/20 through: 09/05/20
[2020-09-03 11:07] VITALS: PULSE 73
[2020-09-03] MEDS: Enoxaparin 40 MG/0.4 ML Syringe SC (11:07)
[2020-09-03] MEDS: hydroCHLOROthiazide 25 MG Tablet PO (11:07)
[2020-09-03] MEDS: Pantoprazole Sodium 20 MG Tablet PO (11:07)
[2020-09-03] MEDS: Metoprolol(XL)Succ 50 MG Tablet PO (11:07)
[2020-09-03] MEDS: 0.9% Saline Lock 10 ML Syringe IV (11:08)
[2020-09-03 11:09] VITALS: BP 133/76; PULSE 73; RESP 18; TEMP 36.6; O2SAT 98
[2020-09-03] MEDS: Sertraline 100 MG Tablet PO (11:14)
--- NOTE | 2020-09-03 16:07 | DS.PCM_ITS ---
Discharge Date and Diagnosis - Problem List Patient Problems: Active and Suspected Problems Vertigo (Acute) Date of Admission: 08/31/20 Date of Discharge: 09/03/20 - Primary Discharge Diagnosis Acute Problems: Active Problems Vertigo (Acute) - Secondary Discharge Diagnosis Chronic Problems: Chronic Problems Hypertension (Chronic) Asthma (Chronic) GERD (gastroesophageal reflux disease) (Chronic) Hospital Course and Treatment Imaging Results: Diagnostic Data Brain CT 08/31/20 14:09 IMPRESSION: Normal CT scan of the head. Electronically Signed: Shravan Clifford, at 15:09 EST Tel , Service support , Operations: None Procedures: None Summary of Care Provided: The patient is a 39 year old F with a PMh of asthma, hypertension and GERD. She was admitted via the ED oin 09/03/2020 with a complaint of dizziness, which worsened, and associated with nausea and headache. IT was also worse with movement of her head. She was admitted and managed for vertigo likely due to BPPV. CT of the head done was negative for any intracranial pathology. She was put on meclizine and prednisone. PT.OT was consulted. Dizziness gradually improved. She worked with physical therapy and this helped with dizziness. Patient remained stable and was discharged home on 09/03/2020. SHe was discharged home on 08/14/2020. She was discharged with a script for meclizine. She is to follow up with her PCP nad with PT/OT on outpatient basis. Patient seen and examined prior to discharge. She felt much better and had no complaitns. Dizziness had improved. Revview of systems is otherwise negative. Labs and vitals reviewed. Home medications reviewed and reconciled. O/E; Vital Signs Temp Pulse Resp BP Pulse Ox 97.8 F 73 18 133/76 H 98 09/03/20 11:09 09/03/20 11:09 09/03/20 11:09 09/03/20 11:09 09/03/20 11:09 [] General: Alert, Oriented x3, Cooperative HEENT: Atraumatic, PERRLA, EOMI, Normocephalic Oral: Dry Mucosa Neck: Supple, No JVD, Negative Carotid Bruits Lungs: Clear to auscultation, Normal air movement, No rhonchi, No wheeze, No rales Cardiovascular: Regular rate, Regular Rhythm, Normal S1, Normal S2, No murmurs Abdomen: Bowel Sounds Present, Soft, Non Tender Extremities: No edema, Capillary Refill Less than 3 Seconds Skin: No rashes, No breakdown Musculoskeletal: No Tenderness to Palpation of Joints or Extremities Lymphatic: No Cervical, Supraclavicular, or Inguinal Adenopathy Neurological: Cranial nerves II-XII grossly intact, Neuro grossly intact, Motor Exam 5/5 strength throughout Psych/Mental Status: Normal Affect, Appropriate, Alert and oriented to time, place, person, mood and affect Plan is for discharge today. Patient Problems: Active and Suspected Problems Vertigo (Acute) - Physical Exam Vitals/I&O's: Vital Signs Temp Pulse Resp BP Pulse Ox 97.8 F 73 18 133/76 H 98 09/03/20 11:09 09/03/20 11:09 09/03/20 11:09 09/03/20 11:09 09/03/20 11:09 Oxygen Delivery Method Room Air Weight: 239 lb 9.6 oz Body Mass Index (BMI) 44.9 Intake and Output for Last 24 Hours 09/01/20 09/02/20 09/03/20 23:59 23:59 23:59 Intake Total 3701.66 / 3701.66 600 / 600 400 / 400 Output Total 1950 / 1950 625 / 625 Balance 1751.66 / 1751.66 -25 / -25 400 / 400 Discharge Diet: Low fat/ Low Cholesterol Discharge Activity: Return to Normal Activity Weight Bearing Status: Weight bearing as tolerated Call your doctor if you observe: Fever of 101 or Higher, Shortness of breath, Di zziness, Fainting spells Home Medications: Medications to take at Discharge Albuterol Inhaler [Ventolin Hfa] 1 puff INHALATION Q4H PRN PRN 06/18/14 Hydrochlorothiazide [Hctz] 25 mg PO DAILY 11/05/18 Omeprazole [Prilosec] 20 mg PO BID 11/05/18 Sertraline HCl [Zoloft] 100 mg PO DAILY 11/05/18 Zolpidem Tartrate [Ambien] 10 mg PO DAILY 11/05/18 Fluticasone/Vilanterol [Breo Ellipta 100-25 Mcg INH] 1 puff INHALATION DAILY 08/31/20 Metoprolol Succinate [Toprol Xl] 50 mg PO DAILY 08/31/20 Meclizine HCl [Antivert] 25 mg PO 4X/DAY PRN PRN #30 tab 09/03/20 dexAMETHasone [Dexamethasone] 2 mg PO DAILY #30 tab 09/03/20 Following Prescriptions Were Given to Patient: Meclizine HCl [Antivert] 25 mg PO 4X/DAY PRN PRN #30 tab PRN Reason: Dizziness Transmission Status: Received by [facility]acy #[id number] dexAMETHasone [Dexamethasone] 2 mg PO DAILY #30 tab Transmission Status: Received by [id number] Primary Care Physician: Lane Painting MD [Primary Care Provider] - Please follow up with your Primary Care Physician in: 1-2 weeks Patient Instructions: Inner Ear Problems: Causes of Dizziness (Vertigo), ED BPV Vertigo, ED Dizziness UKO Disposition: Home Minutes spent on discharge:: 40 Patient Condition:: Stable Medical Necessity - Tobacco Use Smoking Status: Current every day smoker Tobacco Use: Cigarettes Meaningful Use Info Meaningful Use Diagnoses (Choose all that apply): None applicable Inpatient E&M: 28812 Disch Hosp
== END 2020-09-03 13:19 | disposition home or self-care (01) ==
LOC: ED 17:49 → MS3 18:12
PROVIDERS: Internal Medicine; Admitting Provider Family Medicine; Emergency Provider Emergency Medicine; PCP Family Medicine; Visit Provider Student in an Organized Health Care Education/Training Program
DX: R42 Dizziness and giddiness (principal); Z23 Encounter for immunization; K21.9 Gastro-esophageal reflux disease without esophagitis; J45.909 Unspecified asthma, uncomplicated; I10 Essential (primary) hypertension; F17.210 Nicotine dependence, cigarettes, uncomplicated; E66.01 Morbid (severe) obesity due to excess calories; F32.9 Major depressive disorder, single episode, unspecified; Z79.899 Other long term (current) drug therapy; Z79.51 Long term (current) use of inhaled steroids; Z68.41 Body mass index [BMI] 40.0-44.9, adult; F41.9 Anxiety disorder, unspecified
CPT/HCPCS: 36415; 70450; 80048; 83735; 84100; 84703; 85025; 93005; 94640; 96361; 96372; 96374; 96375; 96376; 97116; 97162; 97166; 97530; 99218; 99285; 99406; J7030; 90686; A4216; G0378; J2405

== ENCOUNTER 2020-10-22 15:00 | Outpatient (RCR) | payer OTHER, SELFPAY ==
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
--- NOTE | 2020-12-07 11:11 | HP.PT.NRP ---
JAMIL GALO was seen in my office for initial evaluation on 09/29/20. The following Plan of Care was established for this patient: Initial Frequency: 2x /Week Initial Duration: 4 Weeks Patient/Client Instruction: Educate patient on: Condition, Plan of Care For the Purpose of:: To increase ROM, To improve nutrient delivery to tissue, To improve muscle performance and motor function, To improve ability to perform ADL's, To increase tolerance to activity/condition/position, To improve performance and independence with ADL's, To improve ability of physical actions for home/community/work/leisure, To improve gait and locomotor functions, To improve balance, To improve safety with gait Therapeutic Exercise to Include: Strength training, Endurance training, Balance training, Gait and locomotor training, Neuromotor development For the Purpose of:: To improve ability to perform ADL's, To increase tolerance to activity/condition/position, To improve performance and independence with ADL's, To decrease level of supervision to perform tasks, To improve ability of physical actions for home/community/work/leisure, To improve gait and locomotor functions, To improve health of tissue, To improve balance, To improve safety with gait Functional Training to Include: Gait training For the Purpose of:: To improve safety with gait This patient was last seen in our office 10/22/20. Pertinent comments regarding their Physical therapy will appear below: MAAME PT as pt cancelled her remaining 2 appts and did not reschedule At this point I will be discontinuing this patient from physical therapy. I would be happy to see this patient again in the future if found appropriate by the physician. Thank you! Eboni Jeronimo, MPT
== END 2020-10-22 19:00 | disposition home or self-care (01) ==
LOC: PT 15:00
PROVIDERS: PCP Family Medicine; Referring Provider Family Medicine; Visit Provider Family Medicine
DX: R42 Dizziness and giddiness (principal)
CPT/HCPCS: 97110; 97161

== ENCOUNTER → 2021-02-11 09:19 | Outpatient (CLI) | payer OTHER, SELFPAY ==
[2021-02-10 09:57] VITALS: BMI 44.9
[2021-02-11 10:19] LABS: Hematocrit 41.7 % (37-47); Hemoglobin 13.1 g/dL (12.0-15.0); Mean Corp Hgb Conc 31.4 g/dL (32-36); Mean Corpuscular Hgb 24.6 pg (27.0-32.0); Mean Corpuscular Volume 78.4 fL (81-99); Mean Platelet Vol. 9.4 fl (6.2-12.0); Platelet Count 223 K/mm3 (150-450); RBC Distribution Width CV 14.7 % (11.6-14.6); RBC Distribution Width SD 41.5 fl (35.1-43.9); Red Blood Count 5.32 M/mm3 (4.2-5.4); White Blood Count 12.1 K/mm3 (4.4-11.0)
[2021-02-11 11:20] LABS: ALB/GLOB Ratio 0.9 RATIO (0.9-2.4); AST(SGOT) 15 U/L (15-37); Alanine Aminotransfer ALT/SGPT 23 U/L (13-56); Albumin, Serum 3.3 g/dL (3.2-5.0); Alkaline Phosphatase 80 U/L (45-117); Anion Gap 6 (5-15); BUN 13 mg/dL (7-18); BUN/Creat Ratio 15.7 RATIO (10-20); Chloride 104 mmol/L (98-107); Creatinine, Serum 0.83 mg/dL (0.55-1.02); EST Glomerular Filtration Rate 82 mL/min (>60); Est Glom Filt Rate - Afr Amer 99 mL/min (>60); Globulin 3.7 g/dL (2.2-4.2); Glucose 199 mg/dL (74-106); Potassium 3.4 mmol/L (3.5-5.1); Sodium Level 139 mmol/L (136-145)
== END ==
PROVIDERS: PCP Family Medicine; Referring Provider Psychiatry & Neurology Neurology; Visit Provider Psychiatry & Neurology Neurology
DX: H81.90 Unspecified disorder of vestibular function, unspecified ear (principal)
CPT/HCPCS: 36415; 80053; 85027

== ENCOUNTER → 2021-02-24 15:32 | Outpatient (CLI) | payer OTHER, SELFPAY ==
[2021-02-10 09:57] VITALS: BMI 44.9
--- NOTE | 2021-02-24 15:33 | MRI_ITS ---
STUDY: MRI BRAIN WITHOUT CONTRAST (ATTENTION INTERNAL AUDITORY CANALS - I.A.C.''s) REASON FOR EXAM: Female, 40 years old. PERIPHERAL VESTIBULOPATHY -- ATTENTION TO THE IAC''S TECHNIQUE: Standardized multiplanar fat and water weighted pulse sequences were obtained. COMPARISON: CT head 08/31/2020. FINDINGS: No intracranial mass, mass effect or midline shift. No territorial infarct or acute ischemia. Normal bilateral internal auditory canals. There is no demonstrated intracanalicular or cisternal vestibular mass on this unenhanced examination. Normal visualized bilateral cochlea, vestibules and semicircular canals. Normal bilateral mastoid air cells. Normal midbrain, shirin and medulla. Normal cerebellum. Normal basal cisterns. Normal size of the ventricles and extra-axial spaces for the patient''s age. Normal white matter tracts of the supratentorial brain. Normal bilateral basal ganglia. Normal thalami. There is no extra-axial fluid accumulation. Normal flow voids within the major intracranial circulation suggesting patency by spin echo criteria. Normal sella turcica, pituitary gland, infundibular stalk, optic chiasm and hypothalamus. Normal visualized paranasal sinuses. Normal calvarium and skull base. Normal visualized soft tissue structures. MRI/Brain without Contrast IMPRESSION: Unremarkable unenhanced MRI of the brain and bilateral internal auditory canals (I.A.C''s). Electronically Signed: Licha Stroud MD at 22:33 EDT Tel , Service support ,
== END ==
PROVIDERS: PCP Family Medicine; Referring Provider Psychiatry & Neurology Neurology; Visit Provider Psychiatry & Neurology Neurology
DX: H81.90 Unspecified disorder of vestibular function, unspecified ear (principal)
CPT/HCPCS: 70551

== ENCOUNTER → 2021-03-01 13:29 | Outpatient (CLI) | payer OTHER, SELFPAY ==
[2021-02-10 09:57] VITALS: BMI 44.9
--- NOTE | 2021-03-01 13:55 | US_ITS ---
STUDY: ULTRASOUND BREAST - LEFT REASON FOR EXAM: Female, 40 years old. Left axillary tenderness. TECHNIQUE: Axial and longitudinal images of the LEFT breast were performed with a high resolution ultrasound transducer. # OF IMAGES: 37 COMPARISON: Comparison is made with prior mammogram done earlier in the day as well as prior ultrasound of the left breast dated 06/20/2013. FINDINGS: LEFT Breast: The left axillary region was examined by ultrasound. 2 benign appearing lymph nodes are seen. The larger lymph node measures 2.4 cm x 1.6 cm x 1.1 cm. US/Breast Limited Unilateral IMPRESSION: There are 2 benign appearing lymph nodes in the left axillary region. ASSESSMENT CATEGORY: BIRADS Category 2: Benign. A letter regarding these results will be sent to the patient by the facility within 30 days. Electronically Signed: Ervin Charles MD at 10:02 EDT , Service support ,
--- NOTE | 2021-03-01 13:55 | BI_ITS ---
MAMMOGRAPHY - BILATERAL DIAGNOSTIC REASON FOR EXAM: Female, 40 years old. The left lateral breast pain for 3 months. Remote left excisional breast biopsy. PERTINENT HISTORY: Non-contributory. TECHNIQUE: Digital bilateral breast carla (3D mammographic acquisition) in the CC and MLO projections. 2-D mediolateral oblique (MLO) and craniocaudad (CC) views of both breasts were obtained. CAD: Full Field Digital Mammography with Computer Added Detection was performed. COMPARISON: Comparison is made with prior study dated 06/20/2013. FINDINGS: Breast Composition: The breasts are heterogeneously dense, which may obscure small masses. There are no dominant masses or suspicious calcifications. Stable benign appearing bilateral axillary lymph nodes. No other significant abnormalities are identified. There has been no significant change since the prior study. BI/DIAG MAMM W/CAD, BILAT IMPRESSION: Stable bilateral diagnostic mammogram. The patient''s history of a palpable lump in the lateral aspect of the breast, correlation with ultrasound is recommended. ASSESSMENT CATEGORY: BIRADS Category 0: Incomplete. Need additional imaging evaluation. A letter regarding these results will be sent to the patient by the facility within 30 days. Approximately 10% of breast cancers are not detected by mammography. A normal mammogram should not delay biopsy of a clinically suspicious abnormality. Electronically Signed: Ervin Charles MD at 15:31 EDT , Service support ,
[2021-03-01 15:09] LABS: Potassium 3.3 mmol/L (3.5-5.1)
== END ==
PROVIDERS: PCP Family Medicine; Referring Provider Student in an Organized Health Care Education/Training Program; Visit Provider Student in an Organized Health Care Education/Training Program
DX: N64.4 Mastodynia (principal); E87.6 Hypokalemia
CPT/HCPCS: 36415; 76642; 77062; 77066; 84132; G0279

== ENCOUNTER → 2021-03-16 12:31 | Outpatient (CLI) | payer OTHER, SELFPAY ==
[2021-02-10 09:57] VITALS: BMI 44.9
[2021-03-16 13:49] LABS: Potassium 3.3 mmol/L (3.5-5.1)
== END ==
PROVIDERS: PCP Family Medicine; Referring Provider Psychiatry & Neurology Neurology; Visit Provider Psychiatry & Neurology Neurology
DX: E87.6 Hypokalemia (principal)
CPT/HCPCS: 36415; 84132

== ENCOUNTER 2022-10-10 07:43 | Emergency (ER) | payer OTHER, SELFPAY ==
[2022-10-10 07:44] VITALS: BP 129/90; PULSE 96; RESP 14; TEMP 36.3; O2SAT 95; BMI 40.2
--- NOTE | 2022-10-10 07:57 | CT_ITS ---
STUDY: CT BRAIN WITHOUT CONTRAST REASON FOR EXAM: Female, 42 years old. sinus pressure, intermittent sv WALTERS, vertigo RADIATION DOSAGE (If Supplied By Facility): CTDIvol = ( 44.99 ) mGy, DLP = ( 745.49 ) mGycm TECHNIQUE: Transaxial CT imaging of the brain was performed without administration of intravenous contrast material. Individualized dose optimization techniques were used for this CT. COMPARISON: No relevant priors. FINDINGS: Normal soft tissue structures. Normal calvarium. Normal size ventricles and extra-axial spaces for the patient''s age. Normal white matter tracts of the cerebral hemispheres. Normal basal ganglia and thalami. Normal brainstem. Normal cerebellum. There is no intracranial hemorrhage. There are no findings of an acute ischemic infarction. Normal visualized paranasal sinuses. CT/Brain/Head without Contrast IMPRESSION: Normal unenhanced CT scan of the brain. Electronically Signed: Mj Malagon MD at 9:07 EST ,
--- NOTE | 2022-10-10 07:58 | EX.ED.VIS.HA ---
HPI History of Present Illness Chief Complaint: Dizziness Informant: patient Onset/Context/Timing Onset: Days (2-3) Timing: Intermittent and Lasts (Seconds) Quality -Headache: Positive for Sharp Location: [facility] had Current Severity: Gone Maximum Severity: Severe Worsened by: Nothing in particular, no triggers Relieved by: Nothing in particular. Has tried Ativan which she has prescription for. Associated Symptoms/Injury Associated Symptoms: Positive for Nausea (Occasional not now) and Sinus Pressure (For past week); Negative for Fever, Vomiting, Numbness, Tingling, Visual Changes, Blurred Vision, Photophobia or Visual Loss Injury - WALTERS: Negative for Direct Trauma Narrative Narrative: Patient states 1 week ago she started developing sinus pressure indicating bilateral maxillary sinus area, and no other symptoms such as fevers, chills, rhinorrhea, congestion, cough, ear symptoms. She saw her PCP and was prescribed Augmentin which she has been taking now for 4 days and states the symptoms are no better, but in the last 2 or 3 days she has additionally developed an unusual intermittent sharp headache that seems to be in the middle of her head that occurs with vertigo which she has a history of intermittently chronically, no ear symptoms, no other new symptoms such as fevers or chills, she occasionally has felt disequilibrium but for the most part is walking around okay. The severe headache and vertigo seems to be intermittently occurring and relatively brief when it does. Other than the antibiotic and the Ativan the patient has tried no other medications for any of this. [facility] Medical History Anemia Chronic headaches Generalized anxiety disorder with panic attacks Hyperlipidemia IFG (impaired fasting glucose) Intermittent palpitations Ovarian tumor Pneumonia Type 2 diabetes mellitus Home Medications albuterol sulfate 90 mcg/actuation aerosol inhaler (Ventolin HFA) 1 puff inhalation Q4H PRN PRN Sob &/Or Wheezing 06/18/14 [History Last Taken 08/29/20] hydrochlorothiazide 25 mg tablet 25 mg PO DAILY 11/05/18 [History Last Taken 08/30/20] zolpidem 10 mg tablet (Ambien) 10 mg PO DAILY 11/05/18 [History Last Taken 08/29/20] fluticasone furoate 100 mcg-vilanterol 25 mcg/dose inhalation powder 1 puff inhalation DAILY sob 08/31/20 [History Last Taken 08/30/20] metoprolol succinate 50 mg tablet,extended release 24 hr 50 mg PO DAILY heart 08/31/20 [History Last Taken 08/30/20] meclizine 25 mg tablet 25 mg PO 4X/DAY PRN PRN Dizziness #30 tabs 09/03/20 [Rx Last Taken Unknown] acetaminophen 650 mg tablet,extended release (Tylenol 8 Hour) 1,300 mg PO Q12H PRN 02/08/21 [History Last Taken Unknown] lorazepam 0.5 mg tablet (Ativan) 0.5 - 1 mg PO TID PRN 02/08/21 [History Last Taken Unknown] sertraline 25 mg tablet 25 mg PO DAILY 02/08/21 [History Last Taken Unknown] loratadine 10 mg capsule 10 mg PO DAILY 02/10/21 [History Last Taken Unknown] potassium chloride 20 mEq tablet,extended release 20 meq PO DAILY #7 tabs 02/15/21 [Rx Last Taken Unknown] potassium chloride 20 mEq tablet,extended release(part/cryst) See Rx Instructions .Route .COMPLEX #30 tabs 03/17/21 [Rx Last Taken Unknown] hydroxyzine HCl 25 mg tablet See Rx Instructions .Route .COMPLEX #60 tabs 05/27/21 [Rx Last Taken Unknown] meclizine 25 mg tablet 25 mg PO Q8H PRN PRN Dizziness #20 tabs 10/10/22 [Rx Last Taken Unknown] Allergy/AdvReac Type Severity Reaction Status Date / Time doxycycline Allergy Hives Verified 10/10/22 07:46 Sulfa (Sulfonamide Allergy Hives Verified 10/10/22 07:46 Antibiotics) Family History (Updated 02/10/21 @ 10:03 by Alexandra Cox) Mother Diabetes Asthma Father Heart disease Hypertension Diabetes Myocardial infarction Surgical History History of cholecystectomy History of hysterectomy History of tonsillectomy LAD (lymphadenopathy) of right cervical region Social History Smoking Status: Current every day smoker tobacco type: cigarettes Electronic Cigarette Use: not used second hand exposure: No alcohol intake: current alcohol intake frequency: holidays/special occasions only substance use type: does not use ROS ROS ED Constitutional Constitutional ED: Denies chills or fever(s) Eyes Eyes: Reports blurry vision; Denies diplopia or discharge from eye(s) ENT ENT ED: Reports as per HPI, disequillibrium, dizziness, headache(s), sinus pressure and vertigo; Denies abnormal hearing, dental pain, discharge from eye(s), ear discharge, ear pain, nasal congestion, rhinorrhea, sore throat, throat swelling or tinnitus Cardiovascular Cardiovascular: Denies chest pain or palpitations Respiratory/Chest Respiratory/Chest: Denies cough or dyspnea Gastrointestinal Gastrointestinal: Reports nausea; Denies abdominal pain, diarrhea or vomiting Genitourinary Genitourinary ED: Denies dysuria or urinary frequency Musculoskeletal Musculoskeletal: Denies back pain, myalgias or neck pain Integumentary Denies abscess or rash Neurologic Neurologic: Reports headache(s); Denies paresthesias or weakness EXAM Physical Exam Const Vital Signs: 10/10/22 07:44 10/10/22 07:52 Temperature 97.4 F L Temperature Source Temporal Pulse Rate 96 Respiratory Rate 14 Respiratory Effort Normal Respiratory Pattern Normal Blood Pressure 129/90 H Blood Pressure Mean 103 Pulse Ox 95 Oxygen Delivery Method Room Air Positive well nourished, well developed and obese General Appearance ED: well developed and NAD Nutritional Appearance: obese HEENT Reports normocephalic, TM's clear and moist mucous membranes HEENT Narrative: Normal-appearing external face, oral mucosa, dentition, and posterior oropharynx. No nasal turbinate edema or purulent discharge. No sinus tenderness or swelling throughout all sinuses. atraumatic; Negative for temporal artery tenderness Tympanic Membrane ED: Yes TM's clear bilateral (And bilateral EAC normal) Eyes PERRL, EOMs intact bilaterally and conjunctivae normal Eyes Narrative: no sig photophobia Neck no lymphadenopathy, supple and no meningeal signs Resp normal respiratory effort and clear to auscultation bilaterally GI non-tender and non-distended Palpation: soft Extremity normal to inspection and full ROM Neuro oriented x3 and CN's II-XII intact bilaterally Neuro Narrative: Normal [id number] and [id number] bilaterally. Jolt test not performed since patient not currently vertiginous. Sensorium / Orientation: awake and alert Speech: speech normal Gait (Neuro): normal gait Motor Exam: strength 5/5 throughout Psych mental status grossly normal Skin Lesions: no lesions Rashes: no rashes MDM MDM MDM Narrative Medical decision making narrative: There is no evidence here or high suspicion on my part for bacterial sinusitis. However, it is possible that she has sphenoidal involvement, in which case the antibiotics would be indicated. I am not surprised that antibiotics are not helping here, she does not appear to have bacterial sinusitis, and her symptoms suggested otherwise initially. I performed a CT of the head considering differential diagnosis of sphenoidal sinusitis, inner ear issues including rare acoustic neuromas, and the possibility of bacterial sinusitis with intracranial extension. My interpretation of the CT agrees with that of the radiologist. It is negative for anything acute. In the meantime she was given meclizine as well as a prescription for symptoms that I suspect will be self-limiting. Differential here includes allergic sinusitis which apparently she has a history of in the EMR, I would advise using nasal sprays in addition to meclizine which I prescribed her. Radiography Diagnostic Testing: Clinical Impression(s) from Imaging Studies Brain CT 10/10/22 07:57 IMPRESSION: Normal unenhanced CT scan of the brain. Electronically Signed: Mj Malagon MD at 9:07 EST , Discharge Plan Triage Chief Complaint: Dizziness ED Provider: Goran Aldana Dx/Rx/DC Orders Clinical Impression: Sinus headache, Peripheral vertigo Instructions: ED Sinus Headache, ED Vertigo, Unspecified Prescriptions: New meclizine [meclizine] 25 mg tablet 25 mg PO Q8H PRN PRN (Reason: Dizziness) Qty: 20 0RF No Action lorazepam [Ativan] 0.5 mg tablet 0.5 - 1 mg PO TID PRN sertraline 25 mg tablet 25 mg PO DAILY acetaminophen [Tylenol 8 Hour] 650 mg tablet extended release 1,300 mg PO Q12H PRN Rx Instructions: Take 2 tabs PO BID if needed for fever loratadine 10 mg capsule 10 mg PO DAILY potassium chloride 20 mEq tablet extended release 20 meq PO DAILY Qty: 7 0RF potassium chloride 20 mEq tablet,ER particles/crystals See Rx Instructions .ROUTE .COMPLEX Qty: 30 0RF Rx Instructions: Take 2 tablets each morning and 1 tablet each evening for 10 days albuterol sulfate [Ventolin HFA] 1 INHALER inhaler 1 puff inhalation Q4H PRN PRN (Reason: Sob &/Or Wheezing) Label Comments: breathing hydrochlorothiazide 25 MG tablet 25 mg PO DAILY zolpidem [Ambien] 10 MG tablet 10 mg PO DAILY metoprolol succinate 50 MG tablet extended release 24 hr 50 mg PO DAILY fluticasone furoate-vilanterol 1 EACH blister with device 1 puff INHALATION DAILY meclizine 25 MG tablet 25 mg PO 4X/DAY PRN PRN (Reason: Dizziness) Qty: 30 1RF hydroxyzine HCl 25 mg tablet See Rx Instructions .ROUTE .COMPLEX Qty: 60 2RF Dose Instruction: TAKE 1 TABLET BY MOUTH TWICE A DAY Rx Instructions: TAKE 1 TABLET BY MOUTH TWICE A DAY Primary Care Provider: Lane Painting Referrals: Lane Painting MD [Primary Care Provider] - 1 Week if not improving Activity Restrictions/Additional Instructions: If sinus pressure does not go away, and the head symptoms are related, then a decongestant nasal spray may help or temporarily solve your symptoms. Look for one that contains phenylephrine or oxymetazoline and use as directed. Disposition Disposition: Home, Self Care
[2022-10-10] MEDS: Meclizine HCl 25 MG Tablet PO (08:05)
[2022-10-10 10:01] VITALS: BP 134/64; PULSE 74
== END 2022-10-10 10:13 | disposition home or self-care (01) ==
PROVIDERS: Emergency Provider Emergency Medicine; PCP Family Medicine; Visit Provider Emergency Medicine
DX: R42 Dizziness and giddiness (principal); E11.9 Type 2 diabetes mellitus without complications; F17.210 Nicotine dependence, cigarettes, uncomplicated; E78.5 Hyperlipidemia, unspecified; R11.0 Nausea; R51.9 Headache, unspecified; E66.9 Obesity, unspecified
CPT/HCPCS: 70450; 99283